=== PATIENT | female | born 1965 | race Caucasian/White ===

== ENCOUNTER 2019-01-04 10:03 | Inpatient (IN) ==
--- NOTE | 2019-01-04 10:54 | Cat Scan Report ---
History: Recent fall hitting head with altered mental status and spastic movements in the arms TECHNIQUE: The brain was imaged without contrast at 2.5 mm intervals. The radiation exposure was limited using dose reduction technology. FINDINGS: The bone windows show no skull fracture. There is no intracranial hemorrhage, cerebral edema, infarct or mass effect. There is mild generalized cerebral atrophy both above and below the tentorium. No abnormal extra-axial fluid collection has formed. The ventricles are normal in size. Comparison with the prior exam from 12/30/18 shows no significant change. IMPRESSION: Mild cerebral atrophy and no evidence of acute head injury Yoana Martinez was called with the results Interpreted and Authenticated by: Jeramie Polo 01/04/19
[2019-01-04 11:05] LABS: Basophils # (Auto) 0 K/mcL (0.0-0.3); Basophils % (Auto) 0.2 % (0.0-2.0); Eosinophils # (Auto) 0.2 K/mcL (0.0-0.7); Eosinophils % (Auto) 2.1 % (0.0-7.0); Granulocytes % (Auto) 79.8 % (38.0-78.0); Lymphocytes % (Auto) 11.3 % (15.5-49.0); Mean Cell Volume 90.4 fL (80.0-100.0); Mean Corpuscular HGB Conc 32.6 g/dL (31.0-36.0); Monocytes # (Auto) 0.6 K/mcL (0.1-0.9); Monocytes % (Auto) 6.6 % (1.0-12.0); Platelet Count 252 K/mcL (140-440); RBC 3.49 M/mcL (4.00-5.20); Red Cell Distribution Width 14.4 % (11.5-14.5)
[2019-01-04 11:10] LABS: Appearance,Urine CLOUDY; Bacteria,Urine FEW /hpf (0); Bilirubin,Urine NEG (NEG); Color,Urine YELLOW; Glucose,Urine (UA) >=500 mg/dL (NEG); Leukocyte Esterase,Urine 500 /uL (NEG); Mucus,Urine FEW /hpf (0); Protein,Urine NEG (NEG); Specific Gravity,Urine 1.014 (1.000-1.035); Urine Blood >=1.0 mg/dL (<0.03); Urine Budding Yeast MANY /hpf (0); Urine RBC > 182 /hpf (0-1); Urine Squamous Epithelial Cell 0 /hpf (0-4); Urine WBC > 182 /hpf (0-4); Urobilinogen,Urine NEG (NEG)
[2019-01-04 11:24] LABS: ALT/SGPT 34 U/l (0-40); Albumin 3.4 gm/dL (3.2-5.2); Albumin/Globulin Ratio 0.9 (1.0-2.3); Alkaline Phosphatase 65 U/L (39-117); Blood Urea Nitrogen 23 mg/dl (6-20)
--- NOTE | 2019-01-04 11:26 | Emergency Department Note ---
Altered Mental Status HPI - General Chief Complaint: Altered Mental Status Stated Complaint: Decreased LOC, Spastic movement in arms Time Seen by Provider: 01/04/19 10:14 Source: patient Mode of arrival: wheelchair Limitations: no limitations - History of Present Illness HPI Narrative: 49-year-old 3-year-old female presents with multiple complaints. She was seen on for a fall out of her wheelchair. She has a fractured arm and laceration to her head. Her head CT at that time was negative. States today she woke up and it is just hard to do things in general. Hard to even button her shirt and she cannot really take care of herself. She lives over [place] and they have been trying to get her some more care and originally she refused. Now states she is going to go to a group home even though she does not want to because she cannot take care of herself. She is currently being treated for a UTI as well, she is on Macrobid and the culture shows that is susceptible. No fever or chills. No nausea, vomiting, or diarrhea. She complains today of just generalized weakness and not being able to think right and not being herself. States she cannot describe it further than that. No change in vision. No dizziness. No pain anywhere. - Related Data Home Medications Medication Instructions Recorded Confirmed Atorvastatin [Lipitor] 40 mg PO HS 12/30/16 12/30/18 Cyanocobalamin (Vitamin B-12) 2,500 mcg PO DAILY 12/30/16 12/30/18 [Vitamin B12] Cyclobenzaprine [Flexeril] 10 mg PO TID 12/30/16 12/30/18 Ergocalciferol (Vitamin D2) 2,000 unit PO DAILY 12/30/16 12/30/18 [Vitamin D2] Hydrocodone/APAP 7.5/325Mg 7.5 mg PO BIDP PRN 12/30/16 12/30/18 Insulin Glargine,Hum.rec.anlog 20 unit SQ BID 12/30/16 12/30/18 [Basaglar Kwikpen U-100] Insulin Lispro [Humalog] See Protocol SQ TID 12/30/16 12/30/18 Loperamide HCl [Loperamide] 2 mg PO PRN PRN 12/30/16 12/30/18 Loratadine [Loradamed] 10 mg PO DAILY 12/30/16 12/30/18 Magnesium Hydroxide [Milk of 30 ml PO DAILYP PRN 12/30/16 12/30/18 Magnesia] Metoprolol Succinate [Toprol] 100 mg PO DAILY 12/30/16 12/30/18 Miconazole Nitrate [Lori 1 appful TP TIDP PRN 12/30/16 12/30/18 Antifungal] RX: Betamethasone Dipr Oint 0.05% 1 appful TP BIDP PRN 12/30/16 12/30/18 [Diprolene] RX: Gabapentin 900 mg PO QIDP 12/30/16 12/30/18 RX: metFORMIN HCL [Glucophage] 1,000 mg PO BID 12/30/16 12/30/18 Ranitidine HCl [Acid Bulk Intake Worker] 150 mg PO DAILY 12/30/16 12/30/18 Rivaroxaban [Xarelto] 20 mg PO DAILY 12/30/16 12/30/18 Spironolactone [Aldactone] 50 mg PO DAILY 12/30/16 12/30/18 Tylenol 650 mg PO Q6HP PRN 12/30/16 12/30/18 Venlafaxine HCl [Venlafaxine HCl 75 mg PO DAILY 12/30/16 12/30/18 ER] Venlafaxine HCl [Venlafaxine HCl 150 mg PO QHS 12/30/16 12/30/18 ER] clonazePAM [Clonazepam] 1 mg PO TIDP PRN 12/30/16 12/30/18 traZODone HCL [Trazodone HCl] 50 mg PO QHS 12/30/16 12/30/18 Dapagliflozin Propanediol [Farxiga] 10 mg PO DAILY 11/02/17 12/30/18 Docusate Sodium [Colace] 100 mg PO BID 11/02/17 12/30/18 Furosemide [Lasix] 20 mg PO BID 11/02/17 12/30/18 morphine SULFATE [Morphine Sulfate 60 mg PO TID 11/02/17 12/30/18 ER] Previous Rx's Medication Instructions Recorded RX: Fluconazole [Diflucan] 150 mg PO DAILY #7 tab 11/02/17 Loperamide [Imodium] 2 mg PO PRN PRN #30 cap 05/05/18 RX: Nitrofurantoin Macrocrystal 100 mg PO BID 7 Days #14 cap 12/31/18 [Nitrofurantoin] Allergies Allergy/AdvReac Type Severity Reaction Status Date / Time Penicillins Allergy Mild Rash Verified 01/04/19 10:07 Review of Systems All systems ED: reviewed and negative except as stated. 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 Laceration with edges well approximated and sutures intact. No redness or drainage. The laceration is to the right eyebrow) Eye: Present: PERRL, EOMI. Absent: conjunctival injection ENT: normal exam, normal oropharynx, mucous membranes moist, TM's normal bilaterally, normal external ear exam Neck: Present: normal inspection, trachea midline. Absent: tenderness, lymphadenopathy Chest: Present: symmetric chest wall rise Respiratory: Present: normal lung sounds bilaterally. Absent: respiratory distress, rales/crackles, accessory muscle use Cardiovascular: Present: regular rate, normal heart sounds Neurological: Present: alert, oriented X3 Psychiatric: Present: normal affect, normal mood Skin: Present: warm, dry, intact Course Course Narrative: At [address] did speak with Dr[address] Cruz, the hospitalist. We are also talking with licensed clinical social worker to make sure this patient meets that criteria for admission. Vital Signs Temperature 98.2 F 01/04/19 10:04 Pulse Rate 102 H 01/04/19 10:04 Respiratory Rate 16 01/04/19 10:04 Blood Pressure 113/61 01/04/19 10:04 Pulse Oximetry (%) 95 01/04/19 10:04 Temperature 98.2 F 01/04/19 10:04 Pulse Rate 89 01/04/19 11:21 Respiratory Rate 17 01/04/19 11:21 Blood Pressure 117/70 01/04/19 11:21 Pulse Oximetry (%) 90 01/04/19 11:21 Altered Mental Status - Lab Data Lab results reviewed: Yes I reviewed the patient's lab results. Result diagrams: 01/04/19 10:34 01/04/19 10:33 Lab Results 01/04/19 01/04/19 01/04/19 Range/Units 10:23 10:26 10:33 WBC (4.5-11.0) K/mcL RBC (4.00-5.20) M/mcL Hgb (12.0-15.0) g/dL Hct (36.0-48.0) % MCV (80.0-100.0) fL MCH (26.0-34.0) pg MCHC (31.0-36.0) g/dL RDW (11.5-14.5) % Plt Count (140-440) K/mcL MPV (7.4-10.4) fL Gran % (38.0-78.0) % Lymph % (Auto) (15.5-49.0) % [place] % (Auto) (1.0-12.0) % Eos % (Auto) (0.0-7.0) % Baso % (Auto) (0.0-2.0) % Gran # (1.8-8.0) K/mcL Lymph # (Auto) (1.5-4.8) K/mcL [place] # (Auto) (0.1-0.9) K/mcL Eos # (Auto) (0.0-0.7) K/mcL Baso # (Auto) (0.0-0.3) K/mcL POC PT 33.2 H (11.9-14.5) sec POC INR 2.9 H (0.9-1.2) VBG Lactic Acid (0.5-2.0) mmol/L Sodium 137 (133-145) mmol/L Potassium 4.5 (3.3-5.1) mmol/L Chloride 98 (96-108) mmol/L Carbon Dioxide 23 (22-30) mmol/L Anion Gap 16.0 (8-16) BUN 23 H (6-20) mg/dl Creatinine 1.0 (0.6-1.1) mg/dl GFR Calculation 64 Glucose 93 (70-105) mg/dL Calcium 8.8 (8.6-10.4) mg/dl Total Bilirubin 0.6 (0.0-1.0) mg/dL AST 49 H (0-37) U/l ALT 34 (0-40) U/l Alkaline Phosphatase 65 (39-117) U/L Troponin T (0-0.03) ng/ml Total Protein 7.0 (5.9-8.4) gm/dL Albumin 3.4 (3.2-5.2) gm/dL Globulin 3.6 (2.2-3.7) gm/dL Albumin/Globulin Ratio 0.9 L (1.0-2.3) Urine Color Yellow Urine Appearance Cloudy Urine pH 5.0 (5.0-9.0) Ur Specific [place] 1.014 (1.000-1.035) Urine Protein Neg (NEG) mg/dL Urine Glucose (UA) >=500 A (NEG) mg/dL Urine Ketones Neg (NEG) mg/dL Urine Occult Blood >=1.0 A (<0.03) mg/dL Urine Nitrate Neg (NEG) Urine Bilirubin Neg (NEG) mg/dL Urine Urobilinogen Neg (NEG) mg/dL Ur Leukocyte Esterase 500 A (NEG) /uL Urine RBC > 182 H (0-1) /hpf Urine WBC > 182 H (0-4) /hpf Ur Squamous Epith Cells 0 (0-4) /hpf Urine Bacteria Few A (0) /hpf Urine Mucus Few (0) /hpf Urine Yeast (Budding) Many A (0) /hpf Ur Culture Indicated? Yes 01/04/19 01/04/19 01/04/19 Range/Units 10:34 10:34 10:34 WBC 9.1 (4.5-11.0) K/mcL RBC 3.49 L (4.00-5.20) M/mcL Hgb 10.3 L (12.0-15.0) g/dL Hct 31.5 L (36.0-48.0) % MCV 90.4 (80.0-100.0) fL MCH 29.5 (26.0-34.0) pg MCHC 32.6 (31.0-36.0) g/dL RDW 14.4 (11.5-14.5) % Plt Count 252 (140-440) K/mcL MPV 7.2 L (7.4-10.4) fL Gran % 79.8 H (38.0-78.0) % Lymph % (Auto) 11.3 L (15.5-49.0) % [place] % (Auto) 6.6 (1.0-12.0) % Eos % (Auto) 2.1 (0.0-7.0) % Baso % (Auto) 0.2 (0.0-2.0) % Gran # 7.3 (1.8-8.0) K/mcL Lymph # (Auto) 1.0 L (1.5-4.8) K/mcL [place] # (Auto) 0.6 (0.1-0.9) K/mcL Eos # (Auto) 0.2 (0.0-0.7) K/mcL Baso # (Auto) 0 (0.0-0.3) K/mcL POC PT (11.9-14.5) sec POC INR (0.9-1.2) VBG Lactic Acid 3.5 H (0.5-2.0) mmol/L Sodium (133-145) mmol/L Potassium (3.3-5.1) mmol/L Chloride (96-108) mmol/L Carbon Dioxide (22-30) mmol/L Anion Gap (8-16) BUN (6-20) mg/dl Creatinine (0.6-1.1) mg/dl GFR Calculation Glucose (70-105) mg/dL Calcium (8.6-10.4) mg/dl Total Bilirubin (0.0-1.0) mg/dL AST (0-37) U/l ALT (0-40) U/l Alkaline Phosphatase (39-117) U/L Troponin T 0.01 (0-0.03) ng/ml Total Protein (5.9-8.4) gm/dL Albumin (3.2-5.2) gm/dL Globulin (2.2-3.7) gm/dL Albumin/Globulin Ratio (1.0-2.3) Urine Color Urine Appearance Urine pH (5.0-9.0) Ur Specific [place] (1.000-1.035) Urine Protein (NEG) mg/dL Urine Glucose (UA) (NEG) mg/dL Urine Ketones (NEG) mg/dL Urine Occult Blood (<0.03) mg/dL Urine Nitrate (NEG) Urine Bilirubin (NEG) mg/dL Urine Urobilinogen (NEG) mg/dL Ur Leukocyte Esterase (NEG) /uL Urine RBC (0-1) /hpf Urine WBC (0-4) /hpf Ur Squamous Epith Cells (0-4) /hpf Urine Bacteria (0) /hpf Urine Mucus (0) /hpf Urine Yeast (Budding) (0) /hpf Ur Culture Indicated? - Radiology Data Radiology results reviewed: Yes I reviewed the patient's radiology results. Disposition Pt seen by TRAFFIC LINE PAINTER/PA only: Yes Clinical Impression: UTI (urinary tract infection), Elevated lactic acid level, Generalized weakness Disposition: Xfer As Inpt ([facility]) Condition: Fair Referrals: Kassy Elder ARNP [Primary Care Provider] - Time of Disposition: 12:30
[2019-01-04] MEDS ORDERED: 0.9 % SODIUM CHLORIDE 1,000 ML IV ONE (11:32)
[2019-01-04] MEDS ORDERED: PIPERACILLIN SODIUM/TAZOBACTAM 3.375 GM in DEXTROSE 5% IN WATER 50 ML IV ONE (13:52)
--- NOTE | 2019-01-04 14:15 | Emergency Department Note ---
General Adult HPI - General Chief complaint: Altered Mental Status Stated complaint: Decreased LOC, Spastic movement in arms Time Seen by Provider: 01/04/19 10:14 Source: patient Mode of arrival: wheelchair Limitations: no limitations - Related Data Home Medications Medication Instructions Recorded Confirmed Atorvastatin [Lipitor] 40 mg PO HS 12/30/16 12/30/18 Betamethasone Dipr Oint 0.05% 1 appful TP BIDP PRN 12/30/16 12/30/18 [Diprolene] Cyanocobalamin (Vitamin B-12) 2,500 mcg PO DAILY 12/30/16 12/30/18 [Vitamin B12] Cyclobenzaprine [Flexeril] 10 mg PO TID 12/30/16 12/30/18 Ergocalciferol (Vitamin D2) 2,000 unit PO DAILY 12/30/16 12/30/18 [Vitamin D2] Gabapentin 900 mg PO QIDP 12/30/16 12/30/18 Hydrocodone/APAP 7.5/325Mg 7.5 mg PO BIDP PRN 12/30/16 12/30/18 Insulin Glargine,Hum.rec.anlog 20 unit SQ BID 12/30/16 12/30/18 [Basaglar Kwikpen U-100] Insulin Lispro [Humalog] See Protocol SQ TID 12/30/16 12/30/18 Loperamide HCl [Loperamide] 2 mg PO PRN PRN 12/30/16 12/30/18 Loratadine [Loradamed] 10 mg PO DAILY 12/30/16 12/30/18 Magnesium Hydroxide [Milk of 30 ml PO DAILYP PRN 12/30/16 12/30/18 Magnesia] Metoprolol Succinate [Toprol] 100 mg PO DAILY 12/30/16 12/30/18 Miconazole Nitrate [Lori 1 appful TP TIDP PRN 12/30/16 12/30/18 Antifungal] Ranitidine HCl [Acid Automatic Tire Tester] 150 mg PO DAILY 12/30/16 12/30/18 Rivaroxaban [Xarelto] 20 mg PO DAILY 12/30/16 12/30/18 Spironolactone [Aldactone] 50 mg PO DAILY 12/30/16 12/30/18 Tylenol 650 mg PO Q6HP PRN 12/30/16 12/30/18 Venlafaxine HCl [Venlafaxine HCl 75 mg PO DAILY 12/30/16 12/30/18 ER] Venlafaxine HCl [Venlafaxine HCl 150 mg PO QHS 12/30/16 12/30/18 ER] clonazePAM [Clonazepam] 1 mg PO TIDP PRN 12/30/16 12/30/18 metFORMIN HCL [Glucophage] 1,000 mg PO BID 12/30/16 12/30/18 traZODone HCL [Trazodone HCl] 50 mg PO QHS 12/30/16 12/30/18 Dapagliflozin Propanediol [Farxiga] 10 mg PO DAILY 11/02/17 12/30/18 Docusate Sodium [Colace] 100 mg PO BID 11/02/17 12/30/18 Furosemide [Lasix] 20 mg PO BID 11/02/17 12/30/18 morphine SULFATE [Morphine Sulfate 60 mg PO TID 11/02/17 12/30/18 ER] Previous Rx's Medication Instructions Recorded Fluconazole [Diflucan] 150 mg PO DAILY #7 tab 11/02/17 Loperamide [Imodium] 2 mg PO PRN PRN #30 cap 05/05/18 Nitrofurantoin Macrocrystal 100 mg PO BID 7 Days #14 cap 12/31/18 [Nitrofurantoin] Allergies Allergy/AdvReac Type Severity Reaction Status Date / Time Penicillins Allergy Mild Rash Verified 01/04/19 10:07 Past Medical History - Past Medical History Medical history: Reports: CHF (Cardiomyopathy), DM, fibromyalgia, GERD, hy perlipidemia, hypertension, obesity, other (Chronic pain, osteoarthritis, [place] (ten years ago)) Psychiatric history: Reports: anxiety, depression 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 It also turns out that she has a very large hematoma to the left lower leg with surrounding cellulitis. She has an elevated lactate level. She has a resistant urinary tract infection, currently on antibiotics but it appears to be a resistant infection. Patient not able to take care of self as she has multiple medical problems, peripheral neuropathy, on blood thinners recent arm fracture. Discussed possible admission with Dr. Cruz and he seems to indicate that this should not be a problem given her multiple morbidities of. Vital Signs Temperature 98.2 F 01/04/19 10:04 Pulse Rate 102 H 01/04/19 10:04 Respiratory Rate 16 01/04/19 10:04 Blood Pressure 113/61 01/04/19 10:04 Pulse Oximetry (%) 95 01/04/19 10:04 Temperature 98.2 F 01/04/19 10:04 Pulse Rate 82 01/04/19 13:18 Respiratory Rate 20 01/04/19 13:18 Blood Pressure 116/75 01/04/19 13:18 Pulse Oximetry (%) 96 01/04/19 13:18 Medical Decision Making - Lab Data Result diagrams: 01/04/19 10:34 01/04/19 10:33 Lab Results 01/04/19 01/04/19 01/04/19 Range/Units 10:23 10:26 10:33 WBC (4.5-11.0) K/mcL RBC (4.00-5.20) M/mcL Hgb (12.0-15.0) g/dL Hct (36.0-48.0) % MCV (80.0-100.0) fL MCH (26.0-34.0) pg MCHC (31.0-36.0) g/dL RDW (11.5-14.5) % Plt Count (140-440) K/mcL MPV (7.4-10.4) fL Gran % (38.0-78.0) % Lymph % (Auto) (15.5-49.0) % [place] % (Auto) (1.0-12.0) % Eos % (Auto) (0.0-7.0) % Baso % (Auto) (0.0-2.0) % Gran # (1.8-8.0) K/mcL Lymph # (Auto) (1.5-4.8) K/mcL [place] # (Auto) (0.1-0.9) K/mcL Eos # (Auto) (0.0-0.7) K/mcL Baso # (Auto) (0.0-0.3) K/mcL POC PT 33.2 H (11.9-14.5) sec POC INR 2.9 H (0.9-1.2) VBG Lactic Acid (0.5-2.0) mmol/L Sodium 137 (133-145) mmol/L Potassium 4.5 (3.3-5.1) mmol/L Chloride 98 (96-108) mmol/L Carbon Dioxide 23 (22-30) mmol/L Anion Gap 16.0 (8-16) BUN 23 H (6-20) mg/dl Creatinine 1.0 (0.6-1.1) mg/dl GFR Calculation 64 Glucose 93 (70-105) mg/dL Calcium 8.8 (8.6-10.4) mg/dl Total Bilirubin 0.6 (0.0-1.0) mg/dL AST 49 H (0-37) U/l ALT 34 (0-40) U/l Alkaline Phosphatase 65 (39-117) U/L Troponin T (0-0.03) ng/ml Total Protein 7.0 (5.9-8.4) gm/dL Albumin 3.4 (3.2-5.2) gm/dL Globulin 3.6 (2.2-3.7) gm/dL Albumin/Globulin Ratio 0.9 L (1.0-2.3) Urine Color Yellow Urine Appearance Cloudy Urine pH 5.0 (5.0-9.0) Ur Specific [place] 1.014 (1.000-1.035) Urine Protein Neg (NEG) mg/dL Urine Glucose (UA) >=500 A (NEG) mg/dL Urine Ketones Neg (NEG) mg/dL Urine Occult Blood >=1.0 A (<0.03) mg/dL Urine Nitrate Neg (NEG) Urine Bilirubin Neg (NEG) mg/dL Urine Urobilinogen Neg (NEG) mg/dL Ur Leukocyte Esterase 500 A (NEG) /uL Urine RBC > 182 H (0-1) /hpf Urine WBC > 182 H (0-4) /hpf Ur Squamous Epith Cells 0 (0-4) /hpf Urine Bacteria Few A (0) /hpf Urine Mucus Few (0) /hpf Urine Yeast (Budding) Many A (0) /hpf Ur Culture Indicated? Yes 01/04/19 01/04/19 01/04/19 Range/Units 10:34 10:34 10:34 WBC 9.1 (4.5-11.0) K/mcL RBC 3.49 L (4.00-5.20) M/mcL Hgb 10.3 L (12.0-15.0) g/dL Hct 31.5 L (36.0-48.0) % MCV 90.4 (80.0-100.0) fL MCH 29.5 (26.0-34.0) pg MCHC 32.6 (31.0-36.0) g/dL RDW 14.4 (11.5-14.5) % Plt Count 252 (140-440) K/mcL MPV 7.2 L (7.4-10.4) fL Gran % 79.8 H (38.0-78.0) % Lymph % (Auto) 11.3 L (15.5-49.0) % [place] % (Auto) 6.6 (1.0-12.0) % Eos % (Auto) 2.1 (0.0-7.0) % Baso % (Auto) 0.2 (0.0-2.0) % Gran # 7.3 (1.8-8.0) K/mcL Lymph # (Auto) 1.0 L (1.5-4.8) K/mcL [place] # (Auto) 0.6 (0.1-0.9) K/mcL Eos # (Auto) 0.2 (0.0-0.7) K/mcL Baso # (Auto) 0 (0.0-0.3) K/mcL POC PT (11.9-14.5) sec POC INR (0.9-1.2) VBG Lactic Acid 3.5 H (0.5-2.0) mmol/L Sodium (133-145) mmol/L Potassium (3.3-5.1) mmol/L Chloride (96-108) mmol/L Carbon Dioxide (22-30) mmol/L Anion Gap (8-16) BUN (6-20) mg/dl Creatinine (0.6-1.1) mg/dl GFR Calculation Glucose (70-105) mg/dL Calcium (8.6-10.4) mg/dl Total Bilirubin (0.0-1.0) mg/dL AST (0-37) U/l ALT (0-40) U/l Alkaline Phosphatase (39-117) U/L Troponin T 0.01 (0-0.03) ng/ml Total Protein (5.9-8.4) gm/dL Albumin (3.2-5.2) gm/dL Globulin (2.2-3.7) gm/dL Albumin/Globulin Ratio (1.0-2.3) Urine Color Urine Appearance Urine pH (5.0-9.0) Ur Specific [place] (1.000-1.035) Urine Protein (NEG) mg/dL Urine Glucose (UA) (NEG) mg/dL Urine Ketones (NEG) mg/dL Urine Occult Blood (<0.03) mg/dL Urine Nitrate (NEG) Urine Bilirubin (NEG) mg/dL Urine Urobilinogen (NEG) mg/dL Ur Leukocyte Esterase (NEG) /uL Urine RBC (0-1) /hpf Urine WBC (0-4) /hpf Ur Squamous Epith Cells (0-4) /hpf Urine Bacteria (0) /hpf Urine Mucus (0) /hpf Urine Yeast (Budding) (0) /hpf Ur Culture Indicated? Disposition Pt seen by AUTOMOBILE MECHANIC RADIATOR/PA only: No Clinical Impression: UTI (urinary tract infection), Elevated lactic acid level, Generalized weakness, Delirium due to general medical condition, Left elbow fracture Disposition: Still a Patient Condition: Fair Referrals: Kassy Elder ARNP [Primary Care Provider] -
--- NOTE | 2019-01-04 14:20 | Internal Med History&Physical ---
Medical - H&P: HPI Patient information: Note initiated : 01/04/19 at 2:13 pm Service Date, if different from initiated Date: [] Patient: Jessica Gaytan a 53 y/o F admitted on for Decreased LOC, Spastic movement in arms. Chief Complaint: [] Chief complaint: weakness, fall, altered mental status History of present illness: Ms. Gaytan is a 53 year old F with a known history of hypertension/obesity and coronary artery disease who presents to the ER with multiple complaints including weakness lethargic malaise, gradual deterioration in functional status after sustaining a fall a few days ago off her wheelchair that resulted in left supracondylar fracture humerus along with injury to the left lower extremity resulting in hematoma. Patient was placed in a cast and sling and has been at [facility] unable to care for self. She has experienced a gradual decline in health and has been battling with recurrent UTIs and has been recently on antibiotics. She however denies expressing fever, diarrhea, dysuria, bloody stool. She further denies headache photophobia but has gradually gotten increasingly confused. Initial workup in the ER was consistent with recurrent UTI with pyuria/elevated lactate and left lower extremity hematoma/cellulitis. Patient was started on antibiotics and hospitalist service was consulted During the time of evaluation patient is fatigued and lethargic and was able to answer some questions. She denies lightheadedness, dizziness, seizure episode. She attributes the fall with her motorized chair toppling over the Rug Review of systems 10 point review of system was performed and is negative so was discussed above Medical - H&P: PMH Medical history: DM type II History of cardiomyopathy Fibromyalgia Hyperlipidemia GERD Hypertension Obesity Chronic pain Degenerative joint disease History of CAD Anxiety depression Surgical history: Gastric bypass Left toe amputation Tonsillectomy Smoking status: Never smoker Have you smoked in the last 12 months: No Medical - H&P: Meds Home Medications Medication Instructions Recorded Confirmed Type Atorvastatin [Lipitor] 10 mg PO HS 12/30/16 01/04/19 History Cyclobenzaprine [Flexeril] 10 mg PO TID 12/30/16 01/04/19 History Insulin Glargine,Hum.rec.anlog 20 unit SQ BID 12/30/16 01/04/19 History [Tami Nava U-100] Insulin Lispro [Humalog] See Protocol SQ TIDAC 12/30/16 01/04/19 History Loratadine [Loradamed] 10 mg PO DAILY 12/30/16 01/04/19 History Magnesium Hydroxide [Milk of 30 ml PO DAILYP PRN 12/30/16 01/04/19 History Magnesia] Metoprolol Succinate [Toprol] 100 mg PO DAILY 12/30/16 01/04/19 History Ranitidine HCl [Acid Tailer Off] 150 mg PO BIDAC 12/30/16 01/04/19 History Rivaroxaban [Xarelto] 20 mg PO DAILY 12/30/16 01/04/19 History Spironolactone [Aldactone] 50 mg PO BID 12/30/16 01/04/19 History Tylenol 650 mg PO Q6HP PRN 12/30/16 01/04/19 History Venlafaxine HCl [Venlafaxine HCl 75 mg PO DAILY 12/30/16 01/04/19 History ER] Venlafaxine HCl [Venlafaxine HCl 150 mg PO DAILY 12/30/16 01/04/19 History ER] metFORMIN HCL [Glucophage] 1,000 mg PO BIDAC 12/30/16 01/04/19 History Dapagliflozin Propanediol [Farxiga] 10 mg PO DAILY 11/02/17 01/04/19 History Furosemide [Lasix] 20 mg PO BID 11/02/17 01/04/19 History Nitrofurantoin Macrocrystal 100 mg PO BID 7 Days #14 cap 12/31/18 01/04/19 Rx [Nitrofurantoin] Aripiprazole [Abilify] 30 mg PO HS 01/04/19 01/04/19 History Cholecalciferol (Vitamin D3) [D3 2,000 unit PO DAILY 01/04/19 01/04/19 History Dots] Cyanocobalamin (Vitamin B-12) 2,500 mcg PO DAILY 01/04/19 01/04/19 History [Vitamin B12] Docusate Sodium [Colace] 100 mg PO BID 01/04/19 01/04/19 History Gabapentin [Neurontin] 900 mg PO QID 01/04/19 01/04/19 History HYDROcodone/APAP 10/325MG 1 tab PO QIDP PRN 01/04/19 01/04/19 History LORazepam 1 mg PO Q4HP PRN 01/04/19 01/04/19 History Loperamide [Imodium] 2 mg PO PRN PRN MDD 8 01/04/19 01/04/19 History Polyethylene Glycol 3350 [Miralax] 1 packet PO BIDP PRN 01/04/19 01/04/19 History buPROPion HCL [Forfivo Xl] 450 mg PO DAILY 01/04/19 01/04/19 History morphine [Ms Contin] 15 mg PO TID 01/04/19 01/04/19 History traZODone HCL [Trazodone HCl] 300 mg PO HS 01/04/19 01/04/19 History Allergies Allergy/AdvReac Type Severity Reaction Status Date / Time Penicillins Allergy Mild Rash Verified 01/04/19 10:07 Medical - H&P: Exam - Constitutional Vitals: Temp Pulse Resp BP Pulse Ox 98.2 F 82 20 116/75 96 01/04/19 10:04 01/04/19 13:18 01/04/19 13:18 01/04/19 13:18 01/04/19 13:18 General appearance: no acute distress Exam: Morbidly obese fatigued and lethargic Head normocephalic Oral cavity dry No eardischarge Neck no lymphadenopathy S1 and S2 regular rhythm Diminished breath sounds bases Abdomen soft nontender Lower extremity no cyanosis clubbing, hematoma left lower extremity along with surrounding cellulitis measuring 5 x 5 Left upper extremity covered in a cast/sling Skin no suspicious lesion Psych alert cooperative Neuro nonfocal Medical - H&P: Reslt - Labs CBC & Chem 7: 01/04/19 10:34 01/04/19 10:33 Labs: Short CBC 01/04/19 Range/Units 10:34 WBC 9.1 (4.5-11.0) K/mcL Hgb 10.3 L (12.0-15.0) g/dL Hct 31.5 L (36.0-48.0) % Plt Count 252 (140-440) K/mcL BMP 01/04/19 10:33 Sodium 137 Potassium 4.5 Chloride 98 Carbon Dioxide 23 BUN 23 H Creatinine 1.0 Glucose 93 Calcium 8.8 Cardiac Enzymes 01/04/19 Range/Units 10:34 Troponin T 0.01 (0-0.03) ng/ml Liver Function 01/04/19 Range/Units 10:33 Total Bilirubin 0.6 (0.0-1.0) mg/dL AST 49 H (0-37) U/l ALT 34 (0-40) U/l Alkaline Phosphatase 65 (39-117) U/L Albumin 3.4 (3.2-5.2) gm/dL Urine 01/04/19 Range/Units 10:26 Urine Color Yellow Urine Appearance Cloudy Urine pH 5.0 (5.0-9.0) Ur Specific [place] 1.014 (1.000-1.035) Urine Protein Neg (NEG) mg/dL Urine Glucose (UA) >=500 A (NEG) mg/dL Medical - H&P: A/P (1) Complicated UTI (urinary tract infection) Current visit: Yes Status: Acute * Complicated UTI-failed outpatient treatment. Continue broad antibiotic coverage and de-escalate based on culture sensitivities. * Recurrent falls rule out cardiac syncope/arrhythmia. Echocardiogram/telemetry monitoring/PT OT/gait and safety eval. Check orthostatics * Left lower extremity infected hematoma/cellulitis-continue antibiotic coverage/wound care consult. * Recent left supracondylar humerus fracture-currently on sling continue pain management. Orthopedic consult * Significant self-care deficits/generalized deconditioning and weakness. Continue aggressive PT OT/nutrition support. Case management to coordinate discharge planning to [facility]. * DM type II continue basal prandial insulin/Farxiga * History of coronary artery disease continue metoprolol/statin/spironolactone * Anticoagulation on rivaroxaban * Neuropathy continue gabapentin/cyclobenzaprine * Anxiety disorder continue venlafaxine * Morbid obesity * Full code Plan * Inpatient admitted in light of severe deconditioning, recurrent falls, self- care deficits * Pain management * Antibiotic coverage for failed outpatient UTI treatment/cellulitis * Wound care consult for left lower extremity infected hematoma * Pre-existing medical condition management as above * Aggressive PT OT/nutritional support
[2019-01-04] MEDS ORDERED: ACETAMINOPHEN 1,000 MG/100 ML BOTTLE IV PRN (15:35)
[2019-01-04] MEDS ORDERED: DEXTROSE 50% 50 ML VIAL IV PRN (15:35)
[2019-01-04] MEDS ORDERED: ONDANSETRON 4 MG/2 ML VIAL IV PRN (15:35)
[2019-01-04] MEDS ORDERED: MAGNESIUM SULFATE 2 GM/50 ML BAG IV PRN (15:35)
[2019-01-04] MEDS ORDERED: DEXTROSE 31 GM ORAL.SUSP PO PRN (15:35)
[2019-01-04] MEDS ORDERED: ACETAMINOPHEN 325 MG TABLET PO PRN (15:35)
[2019-01-04] MEDS ORDERED: MAGNESIUM HYDROXIDE 30 ML ORAL.SUSP PO PRN ×2 (15:35→17:40)
[2019-01-04] MEDS ORDERED: POTASSIUM CHLORIDE 20 MEQ PACKET PO PRN (15:35)
[2019-01-04] MEDS: INSULIN LISPRO 1 UNIT/0.01 ML UNIT SQ SCH ×2 (16:59→21:24)
[2019-01-04] MEDS ORDERED: POLYETHYLENE GLYCOL 3350 17 GM PACKET PO PRN (17:40)
[2019-01-04] MEDS ORDERED: FLEETS ADULT ENEMA PR PRN (17:44)
[2019-01-04] MEDS: PIPERACILLIN SODIUM/TAZOBACTAM 3.375 GM in DEXTROSE 5% IN WATER 50 ML IV SCH (18:11)
[2019-01-04] MEDS: metFORMIN 500 MG TABLET PO SCH (18:13)
[2019-01-04] MEDS ORDERED: DOCUSATE SODIUM 100 MG CAPSULE PO SCH (21:00)
--- NOTE | 2019-01-04 21:03 | General Surgery Consult Note ---
History of Present Illness Patient information: Note initiated : 01/04/19 at 8:51 pm Service Date, if different from initiated Date: [] Patient: Jessica Gaytan a 53 y/o F admitted on 01/04/19 for Decreased LOC, Spastic movement in arms. Chief Complaint: [] Consult date: 01/04/19 Requesting physician: Ramiro Bhardwaj (Wound / Trauma Left leg) History of present illness: 53/F Resident of [facility]. Morbid obese and sedentary. Uses motorized scooter for going around. WOUND CARE CONSULT for traumatic wound LEFT leg with hematoma. I know this patient from her treatment at wound care clinic. She fell off her scooter and sustained Left humeral fracture and soft tissue trauma to Right face and eye brow over 4 days ago. Sutured in ER, X-Rayed, CT scanned for head and discharged. Subsequently fell again, sustained soft tissue injury to Left leg and knee area. Had AMS, hence underwent repeat CT scan of head. There is no evidence of intracranial bone or parenchymal injury, bleeding OR structural shift. She has cerebral atrophy. Patient has multiple other comorbid medical and surgical conditions. Appropriately managed. Medications and Allergies Home Medications Medication Instructions Recorded Confirmed Type Atorvastatin [Lipitor] 10 mg PO HS 12/30/16 01/04/19 History Cyclobenzaprine [Flexeril] 10 mg PO TID 12/30/16 01/04/19 History Insulin Glargine,Hum.rec.anlog 20 unit SQ BID 12/30/16 01/04/19 History [Nbaagljunior Nava U-100] Insulin Lispro [Humalog] See Protocol SQ TIDAC 12/30/16 01/04/19 History Loratadine [Loradamed] 10 mg PO DAILY 12/30/16 01/04/19 History Magnesium Hydroxide [Milk of 30 ml PO DAILYP PRN 12/30/16 01/04/19 History Magnesia] Metoprolol Succinate [Toprol] 100 mg PO DAILY 12/30/16 01/04/19 History Ranitidine HCl [Acid Fireworks Assembly Supervisor] 150 mg PO BIDAC 12/30/16 01/04/19 History Rivaroxaban [Xarelto] 20 mg PO DAILY 12/30/16 01/04/19 History Spironolactone [Aldactone] 50 mg PO BID 12/30/16 01/04/19 History Tylenol 650 mg PO Q6HP PRN 12/30/16 01/04/19 History Venlafaxine HCl [Venlafaxine HCl 75 mg PO DAILY 12/30/16 01/04/19 History ER] Venlafaxine HCl [Venlafaxine HCl 150 mg PO DAILY 12/30/16 01/04/19 History ER] metFORMIN HCL [Glucophage] 1,000 mg PO BIDAC 12/30/16 01/04/19 History Dapagliflozin Propanediol [Farxiga] 10 mg PO DAILY 11/02/17 01/04/19 History Furosemide [Lasix] 20 mg PO BID 11/02/17 01/04/19 History Nitrofurantoin Macrocrystal 100 mg PO BID 7 Days #14 cap 12/31/18 01/04/19 Rx [Nitrofurantoin] Aripiprazole [Abilify] 30 mg PO HS 01/04/19 01/04/19 History Cholecalciferol (Vitamin D3) [D3 2,000 unit PO DAILY 01/04/19 01/04/19 History Dots] Cyanocobalamin (Vitamin B-12) 2,500 mcg PO DAILY 01/04/19 01/04/19 History [Vitamin B12] Docusate Sodium [Colace] 100 mg PO BID 01/04/19 01/04/19 History Gabapentin [Neurontin] 900 mg PO QID 01/04/19 01/04/19 History HYDROcodone/APAP 10/325MG 1 tab PO QIDP PRN 01/04/19 01/04/19 History LORazepam 1 mg PO Q4HP PRN 01/04/19 01/04/19 History Loperamide [Imodium] 2 mg PO PRN PRN MDD 8 01/04/19 01/04/19 History Polyethylene Glycol 3350 [Miralax] 1 packet PO BIDP PRN 01/04/19 01/04/19 History buPROPion HCL [Forfivo Xl] 450 mg PO DAILY 01/04/19 01/04/19 History morphine [Ms Contin] 15 mg PO TID 01/04/19 01/04/19 History traZODone HCL [Trazodone HCl] 300 mg PO HS 01/04/19 01/04/19 History Allergies Allergy/AdvReac Type Severity Reaction Status Date / Time Penicillins Allergy Mild Rash Verified 01/04/19 10:07 Exam Temp Pulse Resp BP Pulse Ox 97.7 F 85 18 120/66 95 01/04/19 15:28 01/04/19 15:28 01/04/19 15:28 01/04/19 15:28 01/04/19 15:28 - General physical appearance well developed, well nourished, no distress, obese (Morbid obesity and non ambulatory. Usus motorized scooter. ) - Eyes PERRL, normal ocular movement, other (Resolving ecchymoses around right orbit. Sutured wound / laceration RIght eyebrow.) - ENT normal pinna, normal nares, normal mucosa, no congestion - Head Head exam IM: Present: atraumatic, normal inspection, normocephalic - Neck no masses, trachea midline, no venous distension - Cardiovascular Cardiovascular exam IM: Present: normal rate and rhythm - Respiratory normal respiratory effort, other (Decreased breath sounds at lung bases. ) - Abdomen Abdomen: Present: soft, non tender, bowel sounds (Redundant oerhanging panniculus) - Genitourinary Present: other (Chronic open wound Right labia. Ruptured cyst. ) - Integumentary Present: other (Brusing and hematoma of Left leg, mid third ann and calf area. Periorbital ecchymoses Right face. ) - Neurologic Present: normal coordination, normal sensation, other (No focal neurological deficits.) - Musculoskeletal Present: other (Bed confined. LEFT humerus fracture. Elbow at right angle. NO NV deficit. Arm in sling. LEFT leg subcutneous bruise / hematoma with intact skin . Scattered bruising LEFT calf. ) - Psychiatric Present: oriented to time, oriented to person, oriented to place, speech is normal, memory intact, other (SHe says that she cannot live by herself and needs to be in a SNF or Rehab facility) Results - Labs 01/05/19 04:18 01/05/19 04:18 Abnormal lab results 01/04/19 01/04/19 01/04/19 Range/Units 10:23 10:26 10:33 RBC (4.00-5.20) M/mcL Hgb (12.0-15.0) g/dL Hct (36.0-48.0) % MPV (7.4-10.4) fL Gran % (38.0-78.0) % Lymph % (Auto) (15.5-49.0) % Lymph # (Auto) (1.5-4.8) K/mcL POC PT 33.2 H (11.9-14.5) sec POC INR 2.9 H (0.9-1.2) VBG Lactic Acid (0.5-2.0) mmol/L BUN 23 H (6-20) mg/dl AST 49 H (0-37) U/l Albumin/Globulin Ratio 0.9 L (1.0-2.3) Urine Glucose (UA) >=500 A (NEG) mg/dL Urine Occult Blood >=1.0 A (<0.03) mg/dL Ur Leukocyte Esterase 500 A (NEG) /uL Urine RBC > 182 H (0-1) /hpf Urine WBC > 182 H (0-4) /hpf Urine Bacteria Few A (0) /hpf Urine Yeast (Budding) Many A (0) /hpf 01/04/19 01/04/19 Range/Units 10:34 10:34 RBC 3.49 L (4.00-5.20) M/mcL Hgb 10.3 L (12.0-15.0) g/dL Hct 31.5 L (36.0-48.0) % MPV 7.2 L (7.4-10.4) fL Gran % 79.8 H (38.0-78.0) % Lymph % (Auto) 11.3 L (15.5-49.0) % Lymph # (Auto) 1.0 L (1.5-4.8) K/mcL POC PT (11.9-14.5) sec POC INR (0.9-1.2) VBG Lactic Acid 3.5 H (0.5-2.0) mmol/L BUN (6-20) mg/dl AST (0-37) U/l Albumin/Globulin Ratio (1.0-2.3) Urine Glucose (UA) (NEG) mg/dL Urine Occult Blood (<0.03) mg/dL Ur Leukocyte Esterase (NEG) /uL Urine RBC (0-1) /hpf Urine WBC (0-4) /hpf Urine Bacteria (0) /hpf Urine Yeast (Budding) (0) /hpf Diabetes panel 01/04/19 Range/Units 10:33 Sodium 137 (133-145) mmol/L Potassium 4.5 (3.3-5.1) mmol/L Chloride 98 (96-108) mmol/L Carbon Dioxide 23 (22-30) mmol/L BUN 23 H (6-20) mg/dl Creatinine 1.0 (0.6-1.1) mg/dl Glucose 93 (70-105) mg/dL Calcium 8.8 (8.6-10.4) mg/dl AST 49 H (0-37) U/l ALT 34 (0-40) U/l Alkaline Phosphatase 65 (39-117) U/L Total Protein 7.0 (5.9-8.4) gm/dL Albumin 3.4 (3.2-5.2) gm/dL Calcium panel 01/04/19 Range/Units 10:33 Calcium 8.8 (8.6-10.4) mg/dl Albumin 3.4 (3.2-5.2) gm/dL Pituitary panel 01/04/19 Range/Units 10:33 Sodium 137 (133-145) mmol/L Potassium 4.5 (3.3-5.1) mmol/L Chloride 98 (96-108) mmol/L Carbon Dioxide 23 (22-30) mmol/L BUN 23 H (6-20) mg/dl Creatinine 1.0 (0.6-1.1) mg/dl Glucose 93 (70-105) mg/dL Calcium 8.8 (8.6-10.4) mg/dl Adrenal panel 01/04/19 Range/Units 10:33 Sodium 137 (133-145) mmol/L Potassium 4.5 (3.3-5.1) mmol/L Chloride 98 (96-108) mmol/L Carbon Dioxide 23 (22-30) mmol/L BUN 23 H (6-20) mg/dl Creatinine 1.0 (0.6-1.1) mg/dl Glucose 93 (70-105) mg/dL Calcium 8.8 (8.6-10.4) mg/dl Total Bilirubin 0.6 (0.0-1.0) mg/dL AST 49 H (0-37) U/l ALT 34 (0-40) U/l Alkaline Phosphatase 65 (39-117) U/L Total Protein 7.0 (5.9-8.4) gm/dL Albumin 3.4 (3.2-5.2) gm/dL All other labs normal. Assessment and Plan (1) Traumatic hematoma of left lower leg Assessment :Traumatic hematoma LEFT leg. ( Soft tissue injury calf ) Plan: Marked out outer edge of erythema. Await MRI of Left leg. Status: Acute Priority: High Qualifiers: Encounter type: initial encounter Qualified Code(s): S80.12XA - Contusion of left lower leg, initial encounter (2) Fall Status: Acute Priority: Medium Qualifiers: Encounter type: initial encounter Qualified Code(s): W19.XXXA - Unspecified fall, initial encounter (3) Laceration of head Status: Acute Priority: Medium Qualifiers: Encounter type: initial encounter Location of open wound of head: periocular area Foreign body presence: without foreign body Laterality: right Qualified Code(s): S01.111A - Laceration without foreign body of right eyelid and periocular area, initial encounter (4) Left elbow fracture Status: Acute Priority: High Qualifiers: Encounter type: initial encounter Fracture type: closed Qualified Code(s): S42.402A - Unspecified fracture of lower end of left humerus, initial encounter for closed fracture (5) Urinary tract bacterial infections Status: Chronic Priority: Low
[2019-01-04] MEDS: ATORVASTATIN 20 MG TABLET PO SCH (21:43)
[2019-01-04] MEDS: ARIPIPRAZOLE 20 MG TABLET PO SCH (21:43)
[2019-01-04] MEDS: GABAPENTIN 300 MG CAPSULE PO SCH (21:44)
[2019-01-04] MEDS: NITROFURANTOIN SR 100 MG CAPSULE PO SCH (21:45)
[2019-01-04] MEDS: SPIRONOLACTONE 25 MG TABLET PO SCH (21:46)
[2019-01-04] MEDS: SENNOSIDES/DOCUSATE SODIUM 1 TAB TABLET PO SCH (21:47)
[2019-01-04] MEDS: INSULIN GLARGINE, HUMAN 1 UNIT/0.01 ML SQ SCH (21:48)
[2019-01-04] MEDS: DOCUSATE SODIUM 100 MG CAPSULE PO SCH (21:48)
[2019-01-04] MEDS: FUROSEMIDE 20 MG TABLET PO SCH (21:48)
[2019-01-04] MEDS: morphine 15 MG TAB.SR.12H PO SCH (21:48)
[2019-01-05] MEDS: 0.9 % SODIUM CHLORIDE 10 ML SYRINGE IV SCH ×4 (01:03→22:48)
[2019-01-05] MEDS: PIPERACILLIN SODIUM/TAZOBACTAM 3.375 GM in DEXTROSE 5% IN WATER 50 ML IV SCH ×5 (01:04→23:53)
[2019-01-05] MEDS: LORazepam 1 MG TABLET PO PRN (02:55)
[2019-01-05] MEDS: HYDROcodone/APAP 10/325MG TABLET PO PRN ×2 (02:55→16:44)
[2019-01-05 05:45] LABS: Mean Cell Volume 90.9 fL (80.0-100.0); Mean Corpuscular HGB Conc 31.9 g/dL (31.0-36.0); Platelet Count 229 K/mcL (140-440); RBC 3.06 M/mcL (4.00-5.20); Red Cell Distribution Width 13.5 % (11.5-14.5)
[2019-01-05 06:08] LABS: ALT/SGPT 28 U/l (0-40); Alkaline Phosphatase 53 U/L (39-117); Bilirubin,Direct < 0.2 mg/dL (0.0-0.3); Blood Urea Nitrogen 16 mg/dl (6-20); Gamma Glutamyl Transpeptidase 18 U/L (5-36); Uric Acid 6.5 mg/dL (2.5-8.0)
[2019-01-05 06:44] LABS: Eosinophils % (Manual) 1 % (0-7); Lymphocytes % 18 % (15-49); Monocytes % (Manual) 7 % (1-12); Platelet Estimate NORMAL (NORMAL); RBC Morphology NORMAL (NORMAL); Segmented Neutrophils % 74 % (38-78)
[2019-01-05] MEDS: metFORMIN 500 MG TABLET PO SCH ×2 (07:53→16:42)
[2019-01-05] MEDS: INSULIN LISPRO 1 UNIT/0.01 ML UNIT SQ SCH ×4 (07:53→22:47)
[2019-01-05] MEDS: sitaGLIPtin 100 MG TABLET PO SCH (09:00)
[2019-01-05] MEDS: INSULIN GLARGINE, HUMAN 1 UNIT/0.01 ML SQ SCH ×2 (09:47→22:42)
[2019-01-05] MEDS: NITROFURANTOIN SR 100 MG CAPSULE PO SCH ×2 (09:49→22:45)
[2019-01-05] MEDS: morphine 15 MG TAB.SR.12H PO SCH ×3 (09:49→22:45)
[2019-01-05] MEDS: SPIRONOLACTONE 25 MG TABLET PO SCH ×2 (09:50→22:43)
[2019-01-05] MEDS: GABAPENTIN 300 MG CAPSULE PO SCH ×4 (09:50→22:46)
[2019-01-05] MEDS: buPROPion 150 MG TAB.XL.24H PO SCH (09:50)
[2019-01-05] MEDS: METOPROLOL SUCCINATE 50 MG TAB.XL.24H PO SCH (09:51)
[2019-01-05] MEDS: CYANOCOBALAMIN (VITAMIN B-12) 500 MCG TABLET PO SCH (09:51)
[2019-01-05] MEDS: RIVAROXABAN 20 MG TABLET PO SCH (09:52)
[2019-01-05] MEDS: LORATADINE 10 MG TABLET PO SCH (09:52)
[2019-01-05] MEDS: DOCUSATE SODIUM 100 MG CAPSULE PO SCH ×2 (09:52→22:46)
[2019-01-05] MEDS: VENLAFAXINE 150 MG CAP.XL.24H PO SCH (09:52)
[2019-01-05] MEDS: FUROSEMIDE 20 MG TABLET PO SCH ×2 (09:52→22:46)
[2019-01-05] MEDS: Dapagliflozin Propanediol [Farxiga] 10 mg Tab PO SCH (11:06)
--- NOTE | 2019-01-05 13:21 | Internal Med Progress Note ---
Medical - PN: Subj Patient information: Note initiated : 01/05/19 at 1:19 pm Service Date, if different from initiated Date: [] Patient: Jessica Gaytan a 53 y/o F admitted on 01/04/19 for Decreased LOC, Spastic movement in arms. Chief Complaint: [] Interval history: Ms. Gaytan is a 53 year old F with a known history of hypertension/obesity and coronary artery disease who presents to the ER with multiple complaints including weakness lethargic malaise, gradual deterioration in functional status after sustaining a fall a few days ago off her wheelchair that resulted in left supracondylar fracture humerus along with injury to the left lower extremity resulting in hematoma. Patient was placed in a cast and sling and has been at [place] unable to care for self. She has experienced a gradual decline in health and has been battling with recurrent UTIs and has been recently on antibiotics. She however denies expressing fever, diarrhea, dysuria, bloody stool. She further denies headache photophobia but has gradually gotten increasingly confused. Initial workup in the ER was consistent with recurrent UTI with pyuria/elevated lactate and left lower extremity hematoma/cellulitis. Patient was started on antibiotics and hospitalist service was consulted During the time of evaluation patient is fatigued and lethargic and was able to answer some questions. She denies lightheadedness, dizziness, seizure episode. She attributes the fall with her motorized chair toppling over the Rug 01/05-patient clinically improved. Wound care on board. MRI lower extremity pending to rule out fracture/osteomyelitis. Possible drainage in 24 hours with wound care. Case discussed with orthopedics for left supracondylar fracture evaluation. Ongoing pain management. Echocardiogram pending. No overnight fever chills nausea vomiting. - Constitutional Vitals: Vital Signs Temp Pulse Resp BP Pulse Ox 97.7 F 84 18 111/65 96 01/05/19 12:11 01/05/19 12:11 01/05/19 12:11 01/05/19 12:11 01/05/19 12:11 Period Temp Pulse Resp BP Sys/Street Pulse Ox Last 24 Hr 97.2 F-98.6 F 65-91 16-22 103-120/60-85 92-98 Intake and Output 01/04/19 01/05/19 01/05/19 21:59 05:59 13:59 Intake Total 290 50 500 Output Total 1000 1000 Balance -710 -950 500 Weight 260 lb 260 lb Patient Weight 01/06/19 05:59 Weight 260 lb Intake & Output: Intake & Output 01/04/19 01/05/19 01/05/19 21:59 05:59 13:59 Intake Total 290 50 500 Output Total 1000 1000 Balance -710 -950 500 Weight 260 lb 260 lb Intake: IV 50 50 100 Zosyn 3.375 gm In Dextrose 5% 50 50 100 in Water 50 ml @ 100 mls/hr IV Q6H [facility] Rx#:[id number] Oral 240 400 Output: Void Amount 1000 1000 Other: Meal Dinner Breakfast Percent of Meal Consumed 100% 100% Feeding Ability Independent Urine Appearance Sediment Urine Color Dark Yellow Urine Odor Normal General appearance: no acute distress Exam: Alert and oriented No anxiety Patient bruises/suture right brow Nonlabored breathing Left arm sling/cast Left leg dressing Medical - PN: Obj Da - Labs CBC & Chem 7: 01/05/19 04:18 01/05/19 04:18 Labs: Abnormal Lab Results 01/05/19 01/05/19 01/04/19 04:18 04:18 10:34 RBC 3.06 L Hgb 8.9 L Hct 27.8 L MPV 7.2 L Gran % Lymph % (Auto) Lymph # (Auto) POC PT POC INR VBG Lactic Acid 3.5 H BUN AST Albumin 3.0 L Albumin/Globulin Ratio Triglycerides 176 H Urine Glucose (UA) Urine Occult Blood Ur Leukocyte Esterase Urine RBC Urine WBC Urine Bacteria Urine Yeast (Budding) 01/04/19 01/04/19 01/04/19 10:34 10:33 10:26 RBC 3.49 L Hgb 10.3 L Hct 31.5 L MPV 7.2 L Gran % 79.8 H Lymph % (Auto) 11.3 L Lymph # (Auto) 1.0 L POC PT POC INR VBG Lactic Acid BUN 23 H AST 49 H Albumin Albumin/Globulin Ratio 0.9 L Triglycerides Urine Glucose (UA) >=500 A Urine Occult Blood >=1.0 A Ur Leukocyte Esterase 500 A Urine RBC > 182 H Urine WBC > 182 H Urine Bacteria Few A Urine Yeast (Budding) Many A 01/04/19 10:23 RBC Hgb Hct MPV Gran % Lymph % (Auto) Lymph # (Auto) POC PT 33.2 H POC INR 2.9 H VBG Lactic Acid BUN AST Albumin Albumin/Globulin Ratio Triglycerides Urine Glucose (UA) Urine Occult Blood Ur Leukocyte Esterase Urine RBC Urine WBC Urine Bacteria Urine Yeast (Budding) Meds: Medications Acetaminophen (Tylenol) 650 mg PO Q4-6HP PRN PRN Reason: PAIN/FEVER > 101 Hydrocodone Bitart/Acetaminophen (Jones 10/325mg) 1 tab PO QIDP PRN PRN Reason: Pain Last Admin: 01/05/19 02:55 Dose: 1 tab Documented by: Atorvastatin Calcium (Lipitor) 10 mg PO HS [facility] Last Admin: 01/04/19 21:43 Dose: 10 mg Documented by: Bupropion HCl (Wellbutrin Xl) 450 mg PO DAILY [facility] Last Admin: 01/05/19 09:50 Dose: 450 mg Documented by: Cyanocobalamin (Vitamin B-12) 2,500 mcg PO DAILY [facility] Last Admin: 01/05/19 09:51 Dose: 2,500 mcg Documented by: Dextrose (Dextrose 50%) 0 ml IV UD PRN PRN Reason: Hypoglycemia Diagnostic Test (Pha) (Accu-Chek) 1 each FS ACHS [facility] Last Admin: 01/05/19 12:01 Dose: 1 each Documented by: Docusate Sodium (Colace) 100 mg PO BID [facility] Last Admin: 01/05/19 09:52 Dose: 100 mg Documented by: Famotidine (Pepcid) 20 mg PO BIDAC [facility] Furosemide (Lasix) 20 mg PO BID [facility] Last Admin: 01/05/19 09:52 Dose: 20 mg Documented by: Gabapentin (Neurontin) 900 mg PO QID [facility] Last Admin: 01/05/19 12:46 Dose: 900 mg Documented by: Glucose (Insta-Glucose) 15 gm PO PRN PRN PRN Reason: Hypoglycemia Magnesium Sulfate (Magnesium Sulfate) 2 gm in 50 mls @ 50 mls/hr IV UD PRN PRN Reason: MG = or < 1.7 Acetaminophen (Ofirmev) 1,000 mg in 100 mls @ 200 mls/hr IV Q6HP PRN PRN Reason: PAIN/FEVER > 101 Piperacillin Sod/Tazobactam (Sod 3.375 gm/ Dextrose) 50 mls @ 100 mls/hr IV Q6H [facility]; Protocol Last Infusion: 01/05/19 12:17 Dose: Infused Documented by: Insulin Glargine (Lantus) 20 unit SQ BID [facility] Last Admin: 01/05/19 09:47 Dose: 20 units Documented by: Insulin Human Lispro (Humalog) 0 unit SQ ACHS [facility]; Protocol Last Admin: 01/05/19 12:21 Dose: Not Given Documented by: Loratadine (Claritin) 10 mg PO DAILY [facility] Last Admin: 01/05/19 09:52 Dose: 10 mg Documented by: Lorazepam (Ativan) 1 mg PO Q4HP PRN PRN Reason: Anxiety Last Admin: 01/05/19 02:55 Dose: 1 mg Documented by: Magnesium Hydroxide (Milk Of Magnesia) 30 ml PO HSP PRN PRN Reason: Constipation [facility] Last Admin: 01/05/19 07:53 Dose: 1,000 mg Documented by: Metoprolol Succinate (Toprol Xl) 100 mg PO DAILY [facility] Last Admin: 01/05/19 09:51 Dose: 100 mg Documented by: Morphine Sulfate (Ms Contin) 15 mg PO TID [facility] Last Admin: 01/05/19 09:49 Dose: 15 mg Documented by: Nitrofurantoin Macrocrystals (Macrobid) 100 mg PO BID [facility] Last Admin: 01/05/19 09:49 Dose: 100 mg Documented by: Ondansetron HCl (Zofran) 4 mg IV Q4-6HP PRN PRN Reason: Nausea And Vomiting Dapagliflozin Propanediol [Farxiga ] 10 Mg Tab 1 dose PO DAILY [facility] Last Admin: 01/05/19 11:06 Dose: Not Given Documented by: Polyethylene Glycol (Miralax) 17 gm PO BIDP PRN PRN Reason: Constipation Potassium Chloride (Klor-Con) 40 meq PO DAILYP PRN PRN Reason: K+ < 3.5 Rivaroxaban (Xarelto) 20 mg PO DAILY [facility] Last Admin: 01/05/19 09:52 Dose: 20 mg Documented by: Senna/Docusate Sodium (Senna Plus Tablet) 1 tab PO HS [facility] Last Admin: 01/04/19 21:47 Dose: 1 tab Documented by: Sitagliptin Phosphate (Januvia) 100 mg PO DAILY [facility] Last Admin: 01/05/19 09:00 Dose: 100 mg Documented by: Sodium Biphosphate/Sodium Phosphate (Fleets Adult) 1 dose NC DAILYP PRN PRN Reason: Constipation Sodium Chloride (Saline Flush) 10 ml IV Q8 [facility] Last Admin: 01/05/19 05:32 Dose: 10 ml Documented by: Spironolactone (Aldactone) 50 mg PO BID [facility] Last Admin: 01/05/19 09:50 Dose: 50 mg Documented by: Venlafaxine HCl (Effexor Xr) 150 mg PO DAILY [facility] Last Admin: 01/05/19 09:52 Dose: 150 mg Documented by: Medical - PN: A/P - Time Spent With Patient Total time spent is greater than 50% in coordination of care (as documented) at patient's floor/unit and/or counseling patient: 25 - 35 minutes (1) Complicated UTI (urinary tract infection) Status: Acute Assessment and plan: * Complicated GNR UTI-failed outpatient treatment. Continue antibiotic coverage. Await cultures/sensitivities * Recurrent falls rule out cardiac syncope/arrhythmia. Echocardiogram to rule out valvular lesion/telemetry no overnight arrhythmias/continue PT OT/gait and safety eval. * Left lower extremity infected hematoma/cellulitis-MRI left lower extremity/wound care consult. Likely undergo incision and drainage in 24 hours * Recent left supracondylar humerus fracture-currently on cast/sling. Orthopedics consulted. Continue pain management. * Significant self-care deficits/generalized deconditioning and weakness. Continue aggressive PT OT/nutrition support. Case management to coordinate discharge planning to [facility] home. * DM type II continue basal prandial insulin/Farxiga * History of CAD-beta santiago statin/spironolactone * Anticoagulation on rivaroxaban * Neuropathy continue gabapentin/cyclobenzaprine * Anxiety disorder continue venlafaxine * Morbid obesity * Full code Plan * Continue pain management * Wound care/orthopedic consult * MRI lower extremity * Antibiotic coverage for failed outpatient UTI * Pre-existing medical condition management as above * Aggressive PT OT/nutritional support Current Visit: Yes Medical - PN: Qual - VTE Deep Vein Thrombosis/Pulmonary Embolism Present on Admission: No
--- NOTE | 2019-01-05 15:00 | General Surgery Progress Note ---
Subjective Patient reports: other (HD stable during [facility]. No concerns reported. AWAITS imaging studies ECHO cardiogram and MRI LEFT leg.) Narrative: Note initiated : 01/05/19 at 2:56 pm Service Date, if different from initiated Date: [] Patient: Jessica Gaytan a 53 y/o F admitted on 01/04/19 for Decreased LOC, Spastic movement in arms. Chief Complaint: [] Objective Temp Pulse Resp BP Pulse Ox 97.7 F 84 18 111/65 96 01/05/19 12:11 01/05/19 12:11 01/05/19 12:11 01/05/19 12:11 01/05/19 12:11 AVSS. No interval changes in clinical examination. - Additional Data Intake & Output - Last 24 hours: Intake & Output 01/03/19 01/04/19 01/05/19 01/06/19 05:59 05:59 05:59 05:59 Intake Total 1340 850 Output Total 2000 700 Balance -660 150 Weight 260 lb 260 lb - Labs 01/05/19 04:18 01/05/19 04:18 Diabetes panel 01/05/19 Range/Units 04:18 Sodium 142 (133-145) mmol/L Potassium 3.9 (3.3-5.1) mmol/L Chloride 105 (96-108) mmol/L Carbon Dioxide 25 (22-30) mmol/L BUN 16 (6-20) mg/dl Creatinine 0.8 (0.6-1.1) mg/dl Glucose 77 (70-105) mg/dL Calcium 8.6 (8.6-10.4) mg/dl AST 36 (0-37) U/l ALT 28 (0-40) U/l Alkaline Phosphatase 53 (39-117) U/L Total Protein 6.1 (5.9-8.4) gm/dL Albumin 3.0 L (3.2-5.2) gm/dL Triglycerides 176 H (<150) mg/dl Calcium panel 01/05/19 Range/Units 04:18 Calcium 8.6 (8.6-10.4) mg/dl Phosphorus 2.9 (2.7-4.5) mg/dL Albumin 3.0 L (3.2-5.2) gm/dL Pituitary panel 01/05/19 Range/Units 04:18 Sodium 142 (133-145) mmol/L Potassium 3.9 (3.3-5.1) mmol/L Chloride 105 (96-108) mmol/L Carbon Dioxide 25 (22-30) mmol/L BUN 16 (6-20) mg/dl Creatinine 0.8 (0.6-1.1) mg/dl Glucose 77 (70-105) mg/dL Calcium 8.6 (8.6-10.4) mg/dl Adrenal panel 01/05/19 Range/Units 04:18 Sodium 142 (133-145) mmol/L Potassium 3.9 (3.3-5.1) mmol/L Chloride 105 (96-108) mmol/L Carbon Dioxide 25 (22-30) mmol/L BUN 16 (6-20) mg/dl Creatinine 0.8 (0.6-1.1) mg/dl Glucose 77 (70-105) mg/dL Calcium 8.6 (8.6-10.4) mg/dl Total Bilirubin 0.7 (0.0-1.0) mg/dL AST 36 (0-37) U/l ALT 28 (0-40) U/l Alkaline Phosphatase 53 (39-117) U/L Total Protein 6.1 (5.9-8.4) gm/dL Albumin 3.0 L (3.2-5.2) gm/dL Assessment and Plan (1) Traumatic hematoma of left lower leg Status: Acute Current Visit: Yes (2) Fall Status: Acute Current Visit: No (3) Laceration of head Status: Acute Current Visit: No (4) Left elbow fracture Status: Acute Current Visit: No (5) Urinary tract bacterial infections Status: Chronic Current Visit: No - Narrative A/P Narrative: Assessment: Hemodynamically stable. No interval changes since last examined. Awaits ordered imaging studies. ( MRI Left LEG and ECHO cardiogram ) Plan: Review all investigation studies and results. Later OR debridement, pulse lavage and tissue for biopsy / cultures. - Time Spent With Patient Total time spent is greater than 50% in coordination of care (as documented) at patient's floor/unit and/or counseling patient:
[2019-01-05] MEDS ORDERED: LORazepam 2 MG/ML VIAL IV ONE (16:40)
[2019-01-05] MEDS: FAMOTIDINE 20 MG TABLET PO SCH (16:44)
[2019-01-05] MEDS ORDERED: GADOBENATE DIMEGLUMINE 20 ML/VIAL IV ONE (17:51)
--- NOTE | 2019-01-05 18:34 | Magnetic Resonance Report ---
History: Fell off scooter with a hematoma in the left lower leg TECHNIQUE: Multiplanar imaging was performed using multiple pulse sequences. 20 mL MultiHance contrast was injected intravenously and postcontrast T1-weighted views were acquired. FINDINGS: There is a moderate size well-circumscribed subcutaneous hematoma located anteriorly and laterally in the midportion of the left lower leg. It measures 2.4 x 3.8 cm in transverse dimension and 6.1 cm in length. It has mixed signal characteristics within it due to blood breakdown products of varying age. Surrounding this there is a moderate moderate cellulitis and subcutaneous edema.. Most of the edema is located anteriorly and laterally. Postcontrast views show a thick serpiginous band of abnormal enhancement within the superior margin of the hematoma. This measures approximately 1.8 cm in length and 7 mm thickness. It also has increased signal on the nonenhanced short TI inversion recovery images. It is low signal on noncontrast T1. I see no abnormal dilated vessels adjacent to the hematoma The underlying tibia and fibula are normal without evidence of fracture or bone marrow edema. There is severe atrophy and fatty infiltration of all the muscles throughout the calf. There is no edema in the muscles. IMPRESSION: Complex subcutaneous hematoma anteriorly and laterally in the midportion left lower leg. This could be infected. Drainage is recommended. Cellulitis in the mid and lower calf No evidence of osteomyelitis or fracture Interpreted and Authenticated by: Jeramie Polo 01/05/19
--- NOTE | 2019-01-05 20:58 | General Surgery Progress Note ---
Subjective Patient reports: other (Saw patient along with Teresa Rn In patient wound care nurse. Reviewed MRI of left leg. ) Narrative: Note initiated : 01/05/19 at 8:54 pm Service Date, if different from initiated Date: [] Patient: Jessica Gaytan a 53 y/o F admitted on 01/04/19 for Decreased LOC, Spastic movement in arms. Chief Complaint: [] Objective Temp Pulse Resp BP Pulse Ox 97.0 F 81 14 115/68 90 01/05/19 18:49 01/05/19 18:49 01/05/19 18:49 01/05/19 18:49 01/05/19 18:49 AVSS. No changes JUAN JOSE. Left leg hematoma draining serous fluid. Cellulitis resolving. - Additional Data Intake & Output - Last 24 hours: Intake & Output 01/03/19 01/04/19 01/05/19 01/06/19 05:59 05:59 05:59 05:59 Intake Total 1340 1200 Output Total 2000 1600 Balance -660 -400 Weight 260 lb 260 lb - Labs 01/05/19 04:18 01/05/19 04:18 Diabetes panel 01/05/19 Range/Units 04:18 Sodium 142 (133-145) mmol/L Potassium 3.9 (3.3-5.1) mmol/L Chloride 105 (96-108) mmol/L Carbon Dioxide 25 (22-30) mmol/L BUN 16 (6-20) mg/dl Creatinine 0.8 (0.6-1.1) mg/dl Glucose 77 (70-105) mg/dL Calcium 8.6 (8.6-10.4) mg/dl AST 36 (0-37) U/l ALT 28 (0-40) U/l Alkaline Phosphatase 53 (39-117) U/L Total Protein 6.1 (5.9-8.4) gm/dL Albumin 3.0 L (3.2-5.2) gm/dL Triglycerides 176 H (<150) mg/dl Calcium panel 01/05/19 Range/Units 04:18 Calcium 8.6 (8.6-10.4) mg/dl Phosphorus 2.9 (2.7-4.5) mg/dL Albumin 3.0 L (3.2-5.2) gm/dL Pituitary panel 01/05/19 Range/Units 04:18 Sodium 142 (133-145) mmol/L Potassium 3.9 (3.3-5.1) mmol/L Chloride 105 (96-108) mmol/L Carbon Dioxide 25 (22-30) mmol/L BUN 16 (6-20) mg/dl Creatinine 0.8 (0.6-1.1) mg/dl Glucose 77 (70-105) mg/dL Calcium 8.6 (8.6-10.4) mg/dl Adrenal panel 01/05/19 Range/Units 04:18 Sodium 142 (133-145) mmol/L Potassium 3.9 (3.3-5.1) mmol/L Chloride 105 (96-108) mmol/L Carbon Dioxide 25 (22-30) mmol/L BUN 16 (6-20) mg/dl Creatinine 0.8 (0.6-1.1) mg/dl Glucose 77 (70-105) mg/dL Calcium 8.6 (8.6-10.4) mg/dl Total Bilirubin 0.7 (0.0-1.0) mg/dL AST 36 (0-37) U/l ALT 28 (0-40) U/l Alkaline Phosphatase 53 (39-117) U/L Total Protein 6.1 (5.9-8.4) gm/dL Albumin 3.0 L (3.2-5.2) gm/dL Assessment and Plan (1) Traumatic hematoma of left lower leg Status: Acute Current Visit: Yes (2) Fall Status: Acute Current Visit: No (3) Laceration of head Status: Acute Current Visit: No (4) Left elbow fracture Status: Acute Current Visit: No (5) Urinary tract bacterial infections Status: Chronic Current Visit: No - Time Spent With Patient Total time spent is greater than 50% in coordination of care (as documented) at patient's floor/unit and/or counseling patient: Assessment: Left leg hematoma anterior and lateral mid third. Draining. Plan: OR debridement biopsies / cultures in AM. Indication for surgery, risks, benefits and alternatives discussed with patient . All Qs answered. She understands and agrees with plan of treatment. 15 - 24 minutes
--- NOTE | 2019-01-05 21:00 | Orthopedic Consult Note ---
History of Present Illness - [facility] Patient information: Note initiated : 01/05/19 at 8:56 pm Service Date, if different from initiated Date: [] Patient: Jessica Gaytan a 53 y/o F admitted on 01/04/19 following a fall for decreased LOC, spastic movement in arms. Chief Complaint: [left elbow pain] Consult date: 01/05/19 Consult reason: fracture History of present illness: Pt is a 53 year old female with left supracondylar humerus fracture, who presented to the ER on 01/04/19 with multiple complaints including weakness lethargic malaise, gradual deterioration in functional status after sustaining a fall a few days ago off her wheelchair that resulted in left supracondylar fracture humerus along with injury to the left lower extremity resulting in hematoma. Patient was placed in a cast and sling in the ER. Denies fever/chills, headache, nausea, abd pain, dysuria, SOB, chest pain. Initial workup in the ER was consistent with recurrent UTI with pyuria/elevated lactate and left lower extremity hematoma/cellulitis. Patient was started on antibiotics and hospitalist service was consulted. ROS: 10 point review of system was performed and is negative so was discussed above Review of Systems Constitutional: as per HPI Past History Past medical history: DM type II History of cardiomyopathy Fibromyalgia Hyperlipidemia GERD Hypertension Obesity Chronic pain Degenerative joint disease History of CAD Anxiety depression Past surgical history: Gastric bypass Left toe amputation Tonsillectomy Past social history: Nonsmoker Medications and Allergies Home Medications Medication Instructions Recorded Confirmed Type Atorvastatin [Lipitor] 10 mg PO HS 12/30/16 01/04/19 History Cyclobenzaprine [Flexeril] 10 mg PO TID 12/30/16 01/04/19 History Insulin Glargine,Hum.rec.anlog 20 unit SQ BID 12/30/16 01/04/19 History [Basaglar Priyaikpen U-100] Insulin Lispro [Humalog] See Protocol SQ TIDAC 12/30/16 01/04/19 History Loratadine [Loradamed] 10 mg PO DAILY 12/30/16 01/04/19 History Magnesium Hydroxide [Milk of 30 ml PO DAILYP PRN 12/30/16 01/04/19 History Magnesia] Metoprolol Succinate [Toprol] 100 mg PO DAILY 12/30/16 01/04/19 History Ranitidine HCl [Acid Cemetery Laborer] 150 mg PO BIDAC 12/30/16 01/04/19 History Rivaroxaban [Xarelto] 20 mg PO DAILY 12/30/16 01/04/19 History Spironolactone [Aldactone] 50 mg PO BID 12/30/16 01/04/19 History Tylenol 650 mg PO Q6HP PRN 12/30/16 01/04/19 History Venlafaxine HCl [Venlafaxine HCl 75 mg PO DAILY 12/30/16 01/04/19 History ER] Venlafaxine HCl [Venlafaxine HCl 150 mg PO DAILY 12/30/16 01/04/19 History ER] metFORMIN HCL [Glucophage] 1,000 mg PO BIDAC 12/30/16 01/04/19 History Dapagliflozin Propanediol [Farxiga] 10 mg PO DAILY 11/02/17 01/04/19 History Furosemide [Lasix] 20 mg PO BID 11/02/17 01/04/19 History Nitrofurantoin Macrocrystal 100 mg PO BID 7 Days #14 cap 12/31/18 01/04/19 Rx [Nitrofurantoin] Aripiprazole [Abilify] 30 mg PO HS 01/04/19 01/04/19 History Cholecalciferol (Vitamin D3) [D3 2,000 unit PO DAILY 01/04/19 01/04/19 History Dots] Cyanocobalamin (Vitamin B-12) 2,500 mcg PO DAILY 01/04/19 01/04/19 History [Vitamin B12] Docusate Sodium [Colace] 100 mg PO BID 01/04/19 01/04/19 History Gabapentin [Neurontin] 900 mg PO QID 01/04/19 01/04/19 History HYDROcodone/APAP 10/325MG 1 tab PO QIDP PRN 01/04/19 01/04/19 History LORazepam 1 mg PO Q4HP PRN 01/04/19 01/04/19 History Loperamide [Imodium] 2 mg PO PRN PRN MDD 8 01/04/19 01/04/19 History Polyethylene Glycol 3350 [Miralax] 1 packet PO BIDP PRN 01/04/19 01/04/19 History buPROPion HCL [Forfivo Xl] 450 mg PO DAILY 01/04/19 01/04/19 History morphine [Ms Contin] 15 mg PO TID 01/04/19 01/04/19 History traZODone HCL [Trazodone HCl] 300 mg PO HS 01/04/19 01/04/19 History Allergies Allergy/AdvReac Type Severity Reaction Status Date / Time Penicillins Allergy Mild Rash Verified 01/04/19 10:07 Physical Examination - Elbow left Pain modifiers: with motion (Left elbow: splint and sling in place. Significant ecchymosis noted about the upper arm in the axillary region. ROM deferred. Sensation intact throughout the shoulder as well as the entire hand and digits. Full ROM at the wrist and hand. Hand is warm and well perfused. ) Assessment and Plan - Narrative A/P Narrative: Pt is a 53 yo female with left supracondylar humerus fracture. LOS 1 day. Discussed the left elbow injury with patient the treatment options including nonsurgical vs surgical intervention. Recommended operative fixation for definitive treatment of the fracture. She is scheduled for evacuation of the left lower leg hematoma tomorrow, 01/06/19. Repeat radiographs were ordered today. Plan to ideally coordinate with general surgery for operative intervention, soonest being tomorrow. She understands the plan and agrees. Her questions were answered. General Adult HPI - General Source: patient (Well developed, obese female. Alert, oriented, interactive and appropriate. In no acute distress.) - Related Data Home Medications Medication Instructions Recorded Confirmed Atorvastatin [Lipitor] 10 mg PO HS 12/30/16 01/04/19 Cyclobenzaprine [Flexeril] 10 mg PO TID 12/30/16 01/04/19 Insulin Glargine,Hum.rec.anlog 20 unit SQ BID 12/30/16 01/04/19 [Basaglar Kwikpen U-100] Insulin Lispro [Humalog] See Protocol SQ TIDAC 12/30/16 01/04/19 Loratadine [Loradamed] 10 mg PO DAILY 12/30/16 01/04/19 Magnesium Hydroxide [Milk of 30 ml PO DAILYP PRN 12/30/16 01/04/19 Magnesia] Metoprolol Succinate [Toprol] 100 mg PO DAILY 12/30/16 01/04/19 Ranitidine HCl [Acid Cemetery Laborer] 150 mg PO BIDAC 12/30/16 01/04/19 Rivaroxaban [Xarelto] 20 mg PO DAILY 12/30/16 01/04/19 Spironolactone [Aldactone] 50 mg PO BID 12/30/16 01/04/19 Tylenol 650 mg PO Q6HP PRN 12/30/16 01/04/19 Venlafaxine HCl [Venlafaxine HCl 75 mg PO DAILY 12/30/16 01/04/19 ER] Venlafaxine HCl [Venlafaxine HCl 150 mg PO DAILY 12/30/16 01/04/19 ER] metFORMIN HCL [Glucophage] 1,000 mg PO BIDAC 12/30/16 01/04/19 Dapagliflozin Propanediol [Farxiga] 10 mg PO DAILY 11/02/17 01/04/19 Furosemide [Lasix] 20 mg PO BID 11/02/17 01/04/19 Aripiprazole [Abilify] 30 mg PO HS 01/04/19 01/04/19 Cholecalciferol (Vitamin D3) [D3 2,000 unit PO DAILY 01/04/19 01/04/19 Dots] Cyanocobalamin (Vitamin B-12) 2,500 mcg PO DAILY 01/04/19 01/04/19 [Vitamin B12] Docusate Sodium [Colace] 100 mg PO BID 01/04/19 01/04/19 Gabapentin [Neurontin] 900 mg PO QID 01/04/19 01/04/19 HYDROcodone/APAP 10/325MG 1 tab PO QIDP PRN 01/04/19 01/04/19 LORazepam 1 mg PO Q4HP PRN 01/04/19 01/04/19 Loperamide [Imodium] 2 mg PO PRN PRN MDD 8 01/04/19 01/04/19 Polyethylene Glycol 3350 [Miralax] 1 packet PO BIDP PRN 01/04/19 01/04/19 buPROPion HCL [Forfivo Xl] 450 mg PO DAILY 01/04/19 01/04/19 morphine [Ms Contin] 15 mg PO TID 01/04/19 01/04/19 traZODone HCL [Trazodone HCl] 300 mg PO HS 01/04/19 01/04/19 Previous Rx's Medication Instructions Recorded Nitrofurantoin Macrocrystal 100 mg PO BID 7 Days #14 cap 12/31/18 [Nitrofurantoin] Allergies Allergy/AdvReac Type Severity Reaction Status Date / Time Penicillins Allergy Mild Rash Verified 01/04/19 10:07
[2019-01-05] MEDS: ATORVASTATIN 20 MG TABLET PO SCH (22:43)
[2019-01-05] MEDS: SENNOSIDES/DOCUSATE SODIUM 1 TAB TABLET PO SCH (23:51)
[2019-01-05] MEDS: ARIPIPRAZOLE 20 MG TABLET PO SCH (23:51)
[2019-01-06] MEDS: LORazepam 1 MG TABLET PO PRN (01:29)
[2019-01-06] MEDS: HYDROcodone/APAP 10/325MG TABLET PO PRN ×2 (02:06→23:08)
[2019-01-06] MEDS: 0.9 % SODIUM CHLORIDE 10 ML SYRINGE IV SCH ×3 (06:09→20:19)
[2019-01-06] MEDS: PIPERACILLIN SODIUM/TAZOBACTAM 3.375 GM in DEXTROSE 5% IN WATER 50 ML IV SCH (06:09)
[2019-01-06 06:23] LABS: Mean Cell Volume 92.2 fL (80.0-100.0); Mean Corpuscular HGB Conc 32.1 g/dL (31.0-36.0); Platelet Count 245 K/mcL (140-440); RBC 3.11 M/mcL (4.00-5.20); Red Cell Distribution Width 13.8 % (11.5-14.5)
[2019-01-06 06:24] LABS: ALT/SGPT 29 U/l (0-40); Albumin 2.9 gm/dL (3.2-5.2); Albumin/Globulin Ratio 0.8 (1.0-2.3); Alkaline Phosphatase 52 U/L (39-117); Bilirubin,Direct < 0.2 mg/dL (0.0-0.3); Blood Urea Nitrogen 18 mg/dl (6-20); Gamma Glutamyl Transpeptidase 20 U/L (5-36); Uric Acid 5.6 mg/dL (2.5-8.0)
[2019-01-06] MEDS: INSULIN LISPRO 1 UNIT/0.01 ML UNIT SQ SCH ×4 (07:30→20:54)
[2019-01-06 07:46] LABS: Eosinophils % (Manual) 1 % (0-7); Lymphocytes % 10 % (15-49); Monocytes % (Manual) 3 % (1-12); Platelet Estimate NORMAL (NORMAL); RBC Morphology NORMAL (NORMAL); Segmented Neutrophils % 86 % (38-78)
[2019-01-06] MEDS ORDERED: HYDROmorphone 2 MG/ML VIAL IV PRN (08:32)
--- NOTE | 2019-01-06 08:55 | XRay Report ---
HISTORY: Supracondylar fracture of the left elbow FINDINGS: There is a comminuted supracondylar fracture of the distal humerus. Bone detail is obscured by overlying plaster cast. The alignment is unchanged from the prior exam done on 12/30/18. The radius and ulna remain aligned with the humerus. IMPRESSION: stable supracondylar fracture Interpreted and Authenticated by: Jeramie Polo 01/06/19
[2019-01-06] MEDS: buPROPion 150 MG TAB.XL.24H PO SCH (09:05)
[2019-01-06] MEDS: METOPROLOL SUCCINATE 50 MG TAB.XL.24H PO SCH (09:06)
[2019-01-06] MEDS: VENLAFAXINE 150 MG CAP.XL.24H PO SCH (09:06)
[2019-01-06] MEDS: metFORMIN 500 MG TABLET PO SCH ×2 (09:08→17:23)
[2019-01-06] MEDS: FAMOTIDINE 20 MG TABLET PO SCH ×2 (09:08→17:23)
[2019-01-06] MEDS: SPIRONOLACTONE 25 MG TABLET PO SCH ×2 (09:09→20:17)
[2019-01-06] MEDS: LORATADINE 10 MG TABLET PO SCH (09:09)
[2019-01-06] MEDS: sitaGLIPtin 100 MG TABLET PO SCH (09:09)
[2019-01-06] MEDS: INSULIN GLARGINE, HUMAN 1 UNIT/0.01 ML SQ SCH ×2 (09:09→20:54)
[2019-01-06] MEDS: DOCUSATE SODIUM 100 MG CAPSULE PO SCH ×2 (09:09→20:17)
[2019-01-06] MEDS: FUROSEMIDE 20 MG TABLET PO SCH ×2 (09:09→20:17)
[2019-01-06] MEDS: GABAPENTIN 300 MG CAPSULE PO SCH ×4 (09:10→20:17)
[2019-01-06] MEDS: NITROFURANTOIN SR 100 MG CAPSULE PO SCH ×2 (09:10→20:17)
[2019-01-06] MEDS: morphine 15 MG TAB.SR.12H PO SCH ×3 (09:10→20:19)
[2019-01-06] MEDS: Dapagliflozin Propanediol [Farxiga] 10 mg Tab PO SCH (09:10)
[2019-01-06] MEDS: CYANOCOBALAMIN (VITAMIN B-12) 500 MCG TABLET PO SCH (09:10)
[2019-01-06] MEDS: RIVAROXABAN 20 MG TABLET PO SCH (09:11)
--- NOTE | 2019-01-06 09:32 | Internal Med Progress Note ---
Medical - PN: Subj Patient information: Note initiated : 01/06/19 at 9:29 am Service Date, if different from initiated Date: [] Patient: Jessica Gatyan a 53 y/o F admitted on 01/04/19 for Decreased LOC, Spastic movement in arms. Chief Complaint: [] Interval history: Ms. Gaytan is a 53 year old F with a known history of hypertension/obesity and coronary artery disease who presents to the ER with multiple complaints including weakness lethargic malaise, gradual deterioration in functional status after sustaining a fall a few days ago off her wheelchair that resulted in left supracondylar fracture humerus along with injury to the left lower extremity resulting in hematoma. Patient was placed in a cast and sling and has been at [place] unable to care for self. She has experienced a gradual decline in health and has been battling with recurrent UTIs and has been recently on antibiotics. She however denies expressing fever, diarrhea, dysuria, bloody stool. She further denies headache photophobia but has gradually gotten increasingly confused. Initial workup in the ER was consistent with recurrent UTI with pyuria/elevated lactate and left lower extremity hematoma/cellulitis. Patient was started on antibiotics and hospitalist service was consulted During the time of evaluation patient is fatigued and lethargic and was able to answer some questions. She denies lightheadedness, dizziness, seizure episode. She attributes the fall with her motorized chair toppling over the Rug 01/05-patient clinically improved. Wound care on board. MRI lower extremity pending to rule out fracture/osteomyelitis. Possible drainage in 24 hours with wound care. Case discussed with orthopedics for left supracondylar fracture evaluation. Ongoing pain management. Echocardiogram pending. No overnight fever chills nausea vomiting. 01/06- patient doing well. Will be undergoing hematoma evacuation/left arm fracture repair. Surgery and orthopedics on board. No overnight events. No concerns or staff. Adequate pain management. Currently nothing by mouth. Will review postop - Constitutional Vitals: Vital Signs Temp Pulse Resp BP Pulse Ox 98.6 F 92 H 14 122/30 98 01/06/19 08:00 01/06/19 08:00 01/06/19 08:00 01/06/19 08:00 01/06/19 08:00 Period Temp Pulse Resp BP Sys/Street Pulse Ox Last 24 Hr 95 F-99.0 F 69-92 14-18 102-131/30-84 90-98 Intake and Output 01/05/19 01/06/19 01/06/19 21:59 05:59 13:59 Intake Total 1060 250 50 Output Total 1600 1650 Balance -540 -1400 50 Weight 261 lb Intake & Output: Intake & Output 01/05/19 01/06/19 01/06/19 21:59 05:59 13:59 Intake Total 1060 250 50 Output Total 1600 1650 Balance -540 -1400 50 Weight 261 lb Intake: IV 100 50 Zosyn 3.375 gm In Dextrose 5% 100 50 in Water 50 ml @ 100 mls/hr IV Q6H [facility] Rx#:[id number] Oral 1060 150 Output: Void Amount 1600 1650 Other: Meal Dinner Percent of Meal Consumed 100% Feeding Ability Independent Urine Appearance Clear Urine Color Dark Yellow Straw Urine Odor Strong Normal General appearance: morbidly obese, no acute distress Exam: Left arm in sling Left leg hematoma dressing Resting comfortably Bruises face including right brow suture Nonlabored breathing Medical - PN: Obj Da - Labs CBC & Chem 7: 01/06/19 04:00 01/06/19 03:59 Labs: Abnormal Lab Results 01/06/19 01/06/19 01/06/19 05:45 04:00 03:59 RBC 3.11 L Hgb 9.2 L Hct 28.7 L MPV 7.2 L Gran % Lymph % (Auto) Lymph # (Auto) Seg Neutrophils % 86 H Lymphocytes % 10 L POC PT 16.4 H POC INR 1.4 H VBG Lactic Acid BUN Glucose 67 L AST Lactate Dehydrogenase 273 H Albumin 2.9 L Albumin/Globulin Ratio 0.8 L Triglycerides 179 H Urine Glucose (UA) Urine Occult Blood Ur Leukocyte Esterase Urine RBC Urine WBC Urine Bacteria Urine Yeast (Budding) 01/05/19 01/05/19 01/04/19 04:18 04:18 10:34 RBC 3.06 L Hgb 8.9 L Hct 27.8 L MPV 7.2 L Gran % Lymph % (Auto) Lymph # (Auto) Seg Neutrophils % Lymphocytes % POC PT POC INR VBG Lactic Acid 3.5 H BUN Glucose AST Lactate Dehydrogenase Albumin 3.0 L Albumin/Globulin Ratio Triglycerides 176 H Urine Glucose (UA) Urine Occult Blood Ur Leukocyte Esterase Urine RBC Urine WBC Urine Bacteria Urine Yeast (Budding) 01/04/19 01/04/19 01/04/19 10:34 10:33 10:26 RBC 3.49 L Hgb 10.3 L Hct 31.5 L MPV 7.2 L Gran % 79.8 H Lymph % (Auto) 11.3 L Lymph # (Auto) 1.0 L Seg Neutrophils % Lymphocytes % POC PT POC INR VBG Lactic Acid BUN 23 H Glucose AST 49 H Lactate Dehydrogenase Albumin Albumin/Globulin Ratio 0.9 L Triglycerides Urine Glucose (UA) >=500 A Urine Occult Blood >=1.0 A Ur Leukocyte Esterase 500 A Urine RBC > 182 H Urine WBC > 182 H Urine Bacteria Few A Urine Yeast (Budding) Many A 01/04/19 10:23 RBC Hgb Hct MPV Gran % Lymph % (Auto) Lymph # (Auto) Seg Neutrophils % Lymphocytes % POC PT 33.2 H POC INR 2.9 H VBG Lactic Acid BUN Glucose AST Lactate Dehydrogenase Albumin Albumin/Globulin Ratio Triglycerides Urine Glucose (UA) Urine Occult Blood Ur Leukocyte Esterase Urine RBC Urine WBC Urine Bacteria Urine Yeast (Budding) Meds: Medications Acetaminophen (Tylenol) 650 mg PO Q4-6HP PRN PRN Reason: PAIN/FEVER > 101 Hydrocodone Bitart/Acetaminophen ([place] 10/325mg) 1 tab PO QIDP PRN PRN Reason: Pain Last Admin: 01/06/19 02:06 Dose: 1 tab Documented by: Atorvastatin Calcium (Lipitor) 10 mg PO HS [facility] Last Admin: 01/05/19 22:43 Dose: 10 mg Documented by: Bupropion HCl (Wellbutrin Xl) 450 mg PO DAILY [facility] Last Admin: 01/06/19 09:05 Dose: 450 mg Documented by: Cyanocobalamin (Vitamin B-12) 2,500 mcg PO DAILY [facility] Last Admin: 01/06/19 09:10 Dose: Not Given Documented by: Dextrose (Dextrose 50%) 0 ml IV UD PRN PRN Reason: Hypoglycemia Diagnostic Test (Pha) (Accu-Chek) 1 each FS ACHS [facility] Last Admin: 01/06/19 07:29 Dose: 1 each Documented by: Docusate Sodium (Colace) 100 mg PO BID [facility] Last Admin: 01/06/19 09:09 Dose: Not Given Documented by: Famotidine (Pepcid) 20 mg PO BIDAC [facility] Last Admin: 01/06/19 09:08 Dose: Not Given Documented by: Furosemide (Lasix) 20 mg PO BID [facility] Last Admin: 01/06/19 09:09 Dose: Not Given Documented by: Gabapentin (Neurontin) 900 mg PO QID [facility] Last Admin: 01/06/19 09:10 Dose: Not Given Documented by: Glucose (Insta-Glucose) 15 gm PO PRN PRN PRN Reason: Hypoglycemia Hydromorphone HCl (Dilaudid) 0.5 mg IV Q4HP PRN PRN Reason: PAIN LEVEL > 6 Last Admin: 01/06/19 09:23 Dose: 0.5 mg Documented by: Magnesium Sulfate (Magnesium Sulfate) 2 gm in 50 mls @ 50 mls/hr IV UD PRN PRN Reason: MG = or < 1.7 Acetaminophen (Ofirmev) 1,000 mg in 100 mls @ 200 mls/hr IV Q6HP PRN PRN Reason: PAIN/FEVER > 101 Piperacillin Sod/Tazobactam (Sod 3.375 gm/ Dextrose) 50 mls @ 100 mls/hr IV Q6H [facility]; Protocol Last Infusion: 01/06/19 06:47 Dose: Infused Documented by: Gentamicin Sulfate 40 mg/Clindamycin Phosphate 300 mg/Bacitracin 25,000 unit/ Sodium Chloride 503 mls @ 0 mls/hr IRR ONCE ONE Stop: 01/06/19 12:01 Insulin Glargine (Lantus) 20 unit SQ BID [facility] Last Admin: 01/06/19 09:09 Dose: Not Given Documented by: Insulin Human Lispro (Humalog) 0 unit SQ ACHS [facility]; Protocol Last Admin: 01/06/19 07:30 Dose: Not Given Documented by: Loratadine (Claritin) 10 mg PO DAILY [facility] Last Admin: 01/06/19 09:09 Dose: Not Given Documented by: Lorazepam (Ativan) 1 mg PO Q4HP PRN PRN Reason: Anxiety Last Admin: 01/06/19 01:29 Dose: 1 mg Documented by: Magnesium Hydroxide (Milk Of Magnesia) 30 ml PO HSP PRN PRN Reason: Constipation Metformin HCl (Glucophage) 1,000 mg PO BIDCC [facility] Last Admin: 01/06/19 09:08 Dose: Not Given Documented by: Metoprolol Succinate (Toprol Xl) 100 mg PO DAILY [facility] Last Admin: 01/06/19 09:06 Dose: 100 mg Documented by: Morphine Sulfate (Ms Contin) 15 mg PO TID [facility] Last Admin: 01/06/19 09:10 Dose: Not Given Documented by: Nitrofurantoin Macrocrystals (Macrobid) 100 mg PO BID [facility] Last Admin: 01/06/19 09:10 Dose: Not Given Documented by: Ondansetron HCl (Zofran) 4 mg IV Q4-6HP PRN PRN Reason: Nausea And Vomiting Dapagliflozin Propanediol [Farxiga ] 10 Mg Tab 1 dose PO DAILY [facility] Last Admin: 01/06/19 09:10 Dose: Not Given Documented by: Polyethylene Glycol (Miralax) 17 gm PO BIDP PRN PRN Reason: Constipation Potassium Chloride (Klor-Con) 40 meq PO DAILYP PRN PRN Reason: K+ < 3.5 Rivaroxaban (Xarelto) 20 mg PO DAILY [facility] Last Admin: 01/06/19 09:11 Dose: Not Given Documented by: Senna/Docusate Sodium (Senna Plus Tablet) 1 tab PO HS [facility] Last Admin: 01/05/19 23:51 Dose: 1 tab Documented by: Sitagliptin Phosphate (Januvia) 100 mg PO DAILY [facility] Last Admin: 01/06/19 09:09 Dose: Not Given Documented by: Sodium Biphosphate/Sodium Phosphate (Fleets Adult) 1 dose MD DAILYP PRN PRN Reason: Constipation Sodium Chloride (Saline Flush) 10 ml IV Q8 [facility] Last Admin: 01/06/19 06:09 Dose: 10 ml Documented by: Spironolactone (Aldactone) 50 mg PO BID [facility] Last Admin: 01/06/19 09:09 Dose: Not Given Documented by: Venlafaxine HCl (Effexor Xr) 150 mg PO DAILY [facility] Last Admin: 01/06/19 09:06 Dose: 150 mg Documented by: Medical - PN: A/P - Time Spent With Patient Total time spent is greater than 50% in coordination of care (as documented) at patient's floor/unit and/or counseling patient: 25 - 35 minutes (1) Complicated UTI (urinary tract infection) Status: Acute Assessment and plan: * Complicated Escherichia coli UTI-failed outpatient treatment. Sensitive to c ephalosporin. * Recurrent falls rule out cardiac syncope/arrhythmia. Echocardiogram to rule out valvular lesion/telemetry no overnight arrhythmias/continue PT OT/gait and safety eval. * Left lower extremity infected hematoma/cellulitis-MRI left lower extremity shows hematoma. * Recent left supracondylar humerus fracture-currently on cast/sling. Operative intervention today. Orthopedics on board. * Significant self-care deficits/generalized deconditioning and weakness. Continue aggressive PT OT/nutrition support. Case management to coordinate discharge planning to long-term home. * DM type II continue basal prandial insulin/Farxiga * History of CAD-beta santiago statin/spironolactone * Anticoagulation on rivaroxaban- currently held for surgery * Neuropathy continue gabapentin/cyclobenzaprine * Anxiety disorder continue venlafaxine * Morbid obesity * Full code Plan * Change antibiotics cephalosporin * Keep nothing by mouth and hold anticoagulation for 24 hours * Review postop * Restart anticoagulation 24 hours * Pre-existing medical condition management as above * Aggressive PT OT/nutritional support * Discharge planning per case management likely SNF Current Visit: Yes Medical - PN: Qual - VTE Deep Vein Thrombosis/Pulmonary Embolism Present on Admission: No
[2019-01-06] MEDS ORDERED: cefTRIAXone 2 GM in DEXTROSE 5% IN WATER 50 ML IV SCH (10:00)
[2019-01-06] MEDS ORDERED: [UNRECOGNIZED DRUG - OTHER] IRR ONE (12:00)
[2019-01-06] MEDS ORDERED: GENTAMICIN SULFATE IRR ONE (12:00)
[2019-01-06] MEDS ORDERED: BACITRACIN IRR ONE (12:00)
[2019-01-06] MEDS ORDERED: CLINDAMYCIN IRR ONE (12:00)
[2019-01-06] MEDS ORDERED: KETOROLAC 30 MG/ML VIAL ONE (12:09)
[2019-01-06] MEDS ORDERED: PROPOFOL 200 MG/20 ML VIAL IV ONE (12:09)
[2019-01-06] MEDS ORDERED: ONDANSETRON 4 MG/2 ML VIAL ONE (12:09)
[2019-01-06] MEDS ORDERED: GLYCOPYRROLATE 0.2 MG/ML VIAL IV ONE (12:09)
[2019-01-06] MEDS ORDERED: DEXAMETHASONE 10 MG/ML VIAL ONE (12:09)
[2019-01-06] MEDS ORDERED: KETAMINE 10 MG/ML ML ONE (12:09)
[2019-01-06] MEDS ORDERED: MIDAZOLAM 5 MG/5 ML VIAL ONE (12:09)
[2019-01-06] MEDS ORDERED: fentaNYL 100 MCG/2 ML VIAL IV ONE (12:09)
[2019-01-06] MEDS ORDERED: LIDOCAINE HCL/PF 100 MG/5 ML SYRINGE IV ONE (12:09)
[2019-01-06] MEDS ORDERED: ceFAZolin 3 GM in DEXTROSE 5% IN WATER 50 ML IV SCH (12:15)
--- NOTE | 2019-01-06 13:04 | General Surgery Procedure Note ---
Date of procedure: Note initiated : 01/06/19 at 1:02 pm Service Date, if different from initiated Date: [] Pre-op diagnosis: H/O Trauma. Hematoma Left leg. Procedure: Evacuation / Excision of hematoma and nonviable skin. Findings: Hematoma skin and subcutaneous tissue. Anesthesia: GLMA Surgeon: Burke Carvajal Estimated blood loss: 5 Pathology: other (Culture and Histology.) Description of procedure: Excision of nonviable ruptured skin and subcutaneous tissue. Evacuation of hematoma. Antibiotic irrigation and open packing. Organized blood clots about 30 ml. Condition: stable
--- NOTE | 2019-01-06 13:14 | Internal Med Progress Note ---
Medical - PN: Subj Patient information: Note initiated : 01/06/19 at 1:12 pm Service Date, if different from initiated Date: [] Patient: Jessica Gaytan a 53 y/o F admitted on 01/04/19 for Decreased LOC, Spastic movement in arms. Chief Complaint: [] Interval history: Ms. Gaytan is a 53 year old F with a known history of hypertension/obesity and coronary artery disease who presents to the ER with multiple complaints i ncluding weakness lethargic malaise, gradual deterioration in functional status after sustaining a fall a few days ago off her wheelchair that resulted in left supracondylar fracture humerus along with injury to the left lower extremity resulting in hematoma. Patient was placed in a cast and sling and has been at [place] unable to care for self. She has experienced a gradual decline in health and has been battling with recurrent UTIs and has been recently on antibiotics. She however denies expressing fever, diarrhea, dysuria, bloody stool. She further denies headache photophobia but has gradually gotten increasingly confused. Initial workup in the ER was consistent with recurrent UTI with pyuria/elevated lactate and left lower extremity hematoma/cellulitis. Patient was started on a ntibiotics and hospitalist service was consulted During the time of evaluation patient is fatigued and lethargic and was able to answer some questions. She denies lightheadedness, dizziness, seizure episode. She attributes the fall with her motorized chair toppling over the Rug 01/05-patient clinically improved. Wound care on board. MRI lower extremity pending to rule out fracture/osteomyelitis. Possible drainage in 24 hours with wound care. Case discussed with orthopedics for left supracondylar fracture evaluation. Ongoing pain management. Echocardiogram pending. No overnight fever chills nausea vomiting. 01/06- patient doing well. Will be undergoing hematoma evacuation/left arm fracture repair. Surgery and orthopedics on board. No overnight events. No concerns or staff. Adequate pain management. Currently nothing by mouth. Will review postop 01/07 - Constitutional Vitals: Vital Signs Temp Pulse Resp BP Pulse Ox 98.6 F 92 H 14 122/30 98 01/06/19 08:00 01/06/19 08:00 01/06/19 08:00 01/06/19 08:00 01/06/19 08:00 Period Temp Pulse Resp BP Sys/Street Pulse Ox Last 24 Hr 95 F-99.0 F 69-92 14-16 102-131/30-84 90-98 Intake and Output 01/05/19 01/06/19 01/06/19 21:59 05:59 13:59 Intake Total 1060 250 50 Output Total 1600 1650 900 Balance -540 1400 -850 Weight 118.388 kg Intake & Output: Intake & Output 01/05/19 01/06/19 01/06/19 21:59 05:59 13:59 Intake Total 1060 250 50 Output Total 1600 1650 900 Balance -540 -1400 -850 Weight 118.388 kg Intake: IV 100 50 Zosyn 3.375 gm In Dextrose 5% 100 50 in Water 50 ml @ 100 mls/hr IV Q6H [facility] Rx#:[id number] Oral 1060 150 Output: Void Amount 1600 1650 900 Other: Meal Dinner Percent of Meal Consumed 100% Feeding Ability Independent Urine Appearance Clear Sediment Urine Color Dark Yellow Straw Light Ivelisse Urine Odor Strong Normal Strong Exam: General: Alert, Awake, No acute Distress Eyes/N/T: EOMI, Head/Neck: neck supple, bruising of the face including right brow suture CV: RRR, No murmurs, normal s1/s2 Pulm: Clear b/l, no wheezing/rhonchi/rales Abd: soft, nontender, +BS x4 Ext: no clubbing/cyanosis. Left left arm in sling, left leg hematoma dressing in place Neuro: Alert, no focal deficits, moves all extremities, Skin: warm/dry Medical - PN: Obj Da - Labs CBC & Chem 7: 01/06/19 04:00 01/06/19 03:59 Labs: Abnormal Lab Results 01/06/19 01/06/19 01/06/19 05:45 04:00 03:59 RBC 3.11 L Hgb 9.2 L Hct 28.7 L MPV 7.2 L Gran % Lymph % (Auto) Lymph # (Auto) Seg Neutrophils % 86 H Lymphocytes % 10 L POC PT 16.4 H POC INR 1.4 H VBG Lactic Acid BUN Glucose 67 L AST Lactate Dehydrogenase 273 H Albumin 2.9 L Albumin/Globulin Ratio 0.8 L Triglycerides 179 H Urine Glucose (UA) Urine Occult Blood Ur Leukocyte Esterase Urine RBC Urine WBC Urine Bacteria Urine Yeast (Budding) 04/24/19 04/24/19 04/23/19 04:18 04:18 10:34 RBC 3.06 L Hgb 8.9 L Hct 27.8 L MPV 7.2 L Gran % Lymph % (Auto) Lymph # (Auto) Seg Neutrophils % Lymphocytes % POC PT POC INR VBG Lactic Acid 3.5 H BUN Glucose AST Lactate Dehydrogenase Albumin 3.0 L Albumin/Globulin Ratio Triglycerides 176 H Urine Glucose (UA) Urine Occult Blood Ur Leukocyte Esterase Urine RBC Urine WBC Urine Bacteria Urine Yeast (Budding) 01/04/19 01/04/19 01/04/19 10:34 10:33 10:26 RBC 3.49 L Hgb 10.3 L Hct 31.5 L MPV 7.2 L Gran % 79.8 H Lymph % (Auto) 11.3 L Lymph # (Auto) 1.0 L Seg Neutrophils % Lymphocytes % POC PT POC INR VBG Lactic Acid BUN 23 H Glucose AST 49 H Lactate Dehydrogenase Albumin Albumin/Globulin Ratio 0.9 L Triglycerides Urine Glucose (UA) >=500 A Urine Occult Blood >=1.0 A Ur Leukocyte Esterase 500 A Urine RBC > 182 H Urine WBC > 182 H Urine Bacteria Few A Urine Yeast (Budding) Many A 01/04/19 10:23 RBC Hgb Hct MPV Gran % Lymph % (Auto) Lymph # (Auto) Seg Neutrophils % Lymphocytes % POC PT 33.2 H POC INR 2.9 H VBG Lactic Acid BUN Glucose AST Lactate Dehydrogenase Albumin Albumin/Globulin Ratio Triglycerides Urine Glucose (UA) Urine Occult Blood Ur Leukocyte Esterase Urine RBC Urine WBC Urine Bacteria Urine Yeast (Budding) Meds: Medications Acetaminophen (Tylenol) 650 mg PO Q4-6HP PRN PRN Reason: PAIN/FEVER > 101 Hydrocodone Bitart/Acetaminophen (Deputy 10/325mg) 1 tab PO QIDP PRN PRN Reason: Pain Last Admin: 01/06/19 02:06 Dose: 1 tab Documented by: Atorvastatin Calcium (Lipitor) 10 mg PO HS [facility] Last Admin: 01/05/19 22:43 Dose: 10 mg Documented by: Bupropion HCl (Wellbutrin Xl) 450 mg PO DAILY [facility] Last Admin: 01/06/19 09:05 Dose: 450 mg Documented by: Cyanocobalamin (Vitamin B-12) 2,500 mcg PO DAILY [facility] Last Admin: 01/06/19 09:10 Dose: Not Given Documented by: Dextrose (Dextrose 50%) 0 ml IV UD PRN PRN Reason: Hypoglycemia Diagnostic Test (Pha) (Accu-Chek) 1 each FS [facility] Last Admin: 01/06/19 11:17 Dose: 1 each Documented by: Docusate Sodium (Colace) 100 mg PO BID [facility] Last Admin: 01/06/19 09:09 Dose: Not Given Documented by: Famotidine (Pepcid) 20 mg PO BIDAC [facility] Last Admin: 01/06/19 09:08 Dose: Not Given Documented by: Furosemide (Lasix) 20 mg PO BID [facility] Last Admin: 01/06/19 09:09 Dose: Not Given Documented by: Gabapentin (Neurontin) 900 mg PO QID [facility] Last Admin: 01/06/19 13:08 Dose: Not Given Documented by: Glucose (Insta-Glucose) 15 gm PO PRN PRN PRN Reason: Hypoglycemia Hydromorphone HCl (Dilaudid) 0.5 mg IV Q4HP PRN PRN Reason: PAIN LEVEL > 6 Last Admin: 01/06/19 09:23 Dose: 0.5 mg Documented by: Magnesium Sulfate (Magnesium Sulfate) 2 gm in 50 mls @ 50 mls/hr IV UD PRN PRN Reason: MG = or < 1.7 Acetaminophen (Ofirmev) 1,000 mg in 100 mls @ 200 mls/hr IV Q6HP PRN PRN Reason: PAIN/FEVER > 101 Ceftriaxone Sodium 2 gm/ (Dextrose) 50 mls @ 100 mls/hr IV Q24H [facility]; Protocol Last Admin: 01/06/19 10:32 Dose: 100 mls/hr Documented by: Insulin Glargine (Lantus) 20 unit SQ BID [facility] Last Admin: 01/06/19 09:09 Dose: Not Given Documented by: Insulin Human Lispro (Humalog) 0 unit SQ [facility]; Protocol Last Admin: 01/06/19 11:20 Dose: Not Given Documented by: Loratadine (Claritin) 10 mg PO DAILY [facility] Last Admin: 01/06/19 09:09 Dose: Not Given Documented by: Lorazepam (Ativan) 1 mg PO Q4HP PRN PRN Reason: Anxiety Last Admin: 01/06/19 01:29 Dose: 1 mg Documented by: Magnesium Hydroxide (Milk Of Magnesia) 30 ml PO HSP PRN PRN Reason: Constipation Metformin HCl (Glucophage) 1,000 mg PO BIDCC [facility] Last Admin: 01/06/19 09:08 Dose: Not Given Documented by: Metoprolol Succinate (Toprol Xl) 100 mg PO DAILY [facility] Last Admin: 01/06/19 09:06 Dose: 100 mg Documented by: Morphine Sulfate (Ms Contin) 15 mg PO TID [facility] Last Admin: 01/06/19 09:10 Dose: Not Given Documented by: Nitrofurantoin Macrocrystals (Macrobid) 100 mg PO BID [facility] Last Admin: 01/06/19 09:10 Dose: Not Given Documented by: Ondansetron HCl (Zofran) 4 mg IV Q4-6HP PRN PRN Reason: Nausea And Vomiting Dapagliflozin Propanediol [Farxiga ] 10 Mg Tab 1 dose PO DAILY [facility] Last Admin: 01/06/19 09:10 Dose: Not Given Documented by: Polyethylene Glycol (Miralax) 17 gm PO BIDP PRN PRN Reason: Constipation Potassium Chloride (Klor-Con) 40 meq PO DAILYP PRN PRN Reason: K+ < 3.5 Senna/Docusate Sodium (Senna Plus Tablet) 1 tab PO HS [facility] Last Admin: 01/05/19 23:51 Dose: 1 tab Documented by: Sitagliptin Phosphate (Januvia) 100 mg PO DAILY [facility] Last Admin: 01/06/19 09:09 Dose: Not Given Documented by: Sodium Biphosphate/Sodium Phosphate (Fleets Adult) 1 dose [place] DAILYP PRN PRN Reason: Constipation Sodium Chloride (Saline Flush) 10 ml IV Q8 [facility] Last Admin: 01/06/19 06:09 Dose: 10 ml Documented by: Spironolactone (Aldactone) 50 mg PO BID [facility] Last Admin: 01/06/19 09:09 Dose: Not Given Documented by: Venlafaxine HCl (Effexor Xr) 150 mg PO DAILY [facility] Last Admin: 01/06/19 09:06 Dose: 150 mg Documented by: Medical - PN: A/P - Time Spent With Patient Total time spent is greater than 50% in coordination of care (as documented) at patient's floor/unit and/or counseling patient: - Narrative A/P Narrative: A: *Complicated Escherichia coli UTI: failed outpatient treatment. *Recurrent falls, mechanical from motorized scooter -no reported syncope -Echocardiogram unremarkable, no abnormal tele rhythms. *LLE infected hematoma/cellulitis: -MRI left lower extremity shows hematoma. *Recent left supracondylar humerus fracture:currently on cast/sling. *Significant self-care deficits/generalized deconditioning and weakness. *DM II: *Anemia, chronic *CAD: beta santiago statin/spironolactone *Anticoagulation on rivaroxaban: currently held for surgery *Neuropathy: gabapentin/cyclobenzaprine *Anxiety: on venlafaxine *Morbid obesity Plan: -cephalosporin -Operative intervention today for Arm -Orthopedics on board -Review postop, likely restart anticoagulation 24 hours - ontinue basal prandial insulin/Farxiga -Aggressive PT OT/nutritional support -SNF placement -ppx: Anticoagulation held for lower extremity hematoma, likely resume in 24 hours Medical - PN: Qual - VTE Deep Vein Thrombosis/Pulmonary Embolism Present on Admission: No
[2019-01-06] MEDS ORDERED: FLUMAZENIL 0.1 MG/ML ML IV PRN ×2 (13:17→14:56)
[2019-01-06] MEDS ORDERED: ACETAMINOPHEN 1,000 MG/100 ML BOTTLE IV ONE (13:17)
[2019-01-06] MEDS ORDERED: IPRATROPIUM/ALBUTEROL 3 ML AMPUL.NEB NEB PRN ×2 (13:17→14:56)
[2019-01-06] MEDS ORDERED: ONDANSETRON 4 MG/2 ML VIAL IV PRN ×3 (13:17→14:56)
[2019-01-06] MEDS ORDERED: MEPERIDINE 25 MG/ML SYRINGE IV PRN ×2 (13:17→14:56)
[2019-01-06] MEDS ORDERED: NALOXONE HCL 0.4 MG/ML VIAL IV PRN ×2 (13:17→14:56)
[2019-01-06] MEDS ORDERED: LACTATED RINGERS 250 ML IV PRN ×2 (13:17→14:56)
[2019-01-06] MEDS ORDERED: fentaNYL 100 MCG/2 ML VIAL IV PRN ×2 (13:17→14:56)
[2019-01-06] MEDS ORDERED: BENZOCAINE/MENTHOL 1 LOZENGE PO PRN ×2 (13:17→14:56)
[2019-01-06] MEDS ORDERED: LACTATED RINGERS 1,000 ML IV SCH ×2 (13:30→14:56)
--- NOTE | 2019-01-06 13:55 | Brief Operative Note ---
Date of procedure: 01/06/19 Pre-op diagnosis: left supracondylar humerus fx, closed Post-op diagnosis: same Procedure: Closed reduction and percutaneous pinning of left supracondylar humerus fracture Grafts/Implants: No (0.054 K-wire x2) Anesthesia: GETA Findings: reducible fracture Complications: none Surgeon: Yuri Francis Movement Assembly Final Inspector: Tee Bliss Estimated blood loss (cc): 1 Tourniquet Time (Minutes): 0 Specimens Removed/Pathology: none sent Condition: stable Disposition: PACU
--- NOTE | 2019-01-06 14:43 | XRay Report ---
HISTORY: Postop internal fixation of a supracondylar fracture FINDINGS: There is good alignment following open reduction internal fixation of the supracondylar fracture in the distal humerus. There are two crossing pins extending through both medial lateral distal margins of the humerus into the distal shaft. There is no angulation. The elbow joint space appears normal in width and alignment. IMPRESSION: Good alignment following open reduction internal fixation of the supracondylar fracture in the left elbow Interpreted and Authenticated by: Jeramie Polo 01/06/19
[2019-01-06] MEDS ORDERED: LORazepam 1 MG TABLET PO PRN (14:56)
[2019-01-06] MEDS ORDERED: ACETAMINOPHEN 1,000 MG/100 ML BOTTLE IV PRN (14:56)
[2019-01-06] MEDS ORDERED: MAGNESIUM SULFATE 2 GM/50 ML BAG IV PRN (14:56)
[2019-01-06] MEDS ORDERED: POLYETHYLENE GLYCOL 3350 17 GM PACKET PO PRN (14:56)
[2019-01-06] MEDS ORDERED: POTASSIUM CHLORIDE 20 MEQ PACKET PO PRN (14:56)
[2019-01-06] MEDS ORDERED: DEXTROSE 31 GM ORAL.SUSP PO PRN (14:56)
[2019-01-06] MEDS ORDERED: DEXTROSE 50% 50 ML VIAL IV PRN (14:56)
[2019-01-06] MEDS ORDERED: ACETAMINOPHEN 325 MG TABLET PO PRN (14:56)
[2019-01-06] MEDS ORDERED: FLEETS ADULT ENEMA PR PRN (14:56)
[2019-01-06] MEDS ORDERED: MAGNESIUM HYDROXIDE 30 ML ORAL.SUSP PO PRN (14:56)
--- NOTE | 2019-01-06 19:14 | Operative Note ---
DATE OF OPERATION: 01/06/2019 PREOPERATIVE DIAGNOSIS: Left closed supracondylar humerus fracture, displaced. POSTOPERATIVE DIAGNOSIS: Left closed supracondylar humerus fracture, displaced. PROCEDURE PERFORMED: Closed reduction and percutaneous pinning of left supracondylar humerus fracture procedure. SURGEON: Yuri Francis MD COVER CREASER: Tee Bliss PA-C. Reason for CIELO utilization is for help with positioning and help with reduction and holding the reduction, which appeared to be vital in completing the case in a safe and efficient fashion. ANESTHESIA: General. IV FLUIDS: 500 mL lactated ringer. ESTIMATED BLOOD LOSS: Minimal. TOURNIQUET TIME: Not applicable. ANTIBIOTICS: 3 grams Ancef. IMPLANTS: Two 0.054 K-wires. INTRAOPERATIVE COMPLICATIONS: None apparent. PATHOLOGY TO LAB: None. INDICATIONS: The patient is a 53-year-old female who is typically wheelchair bound, who approximately a week ago was transferring from a wheelchair when she fell resulting in injury to her left elbow. At that time she was seen in the emergency department, splinted and consulted Orthopedics who subsequently advised for operative fixation, but she is unable to follow up with her appointment as she had fallen again and admitted to the hospital here. Orthopedics was again consulted and I was ruby on rails developer; thus discussed with the prior orthopedic surgeon as the wound care surgeon was taking the patient to the OR today for hematoma evacuation and debridement. We discussed that it would be beneficial for the procedure to occur in conjunction with each other. Given time availability agreed to proceed with performing surgery. I discussed the case with the patient, my treatment operative plans and the risk of the procedure. She did agree with the plan. DESCRIPTION OF PROCEDURE: The patient was met in the preoperative area. Site was verified and marked with the patient's input. The patient was taken to the operating room where she underwent successful endotracheal anesthesia and then her left lower extremity was prepped and draped for procedure performed by a separate surgeon. This was completed by him; the room was changed over and cleaned. The patient's left upper extremity had a well-padded tourniquet placed about the proximal arm and was then prepped and draped in the usual sterile fashion after washing the arm with Hibiclens. The sterile prep was ChloraPrep. A surgical timeout was performed to verify patient identity, correct procedure being performed and extremity to be operated on it, and everybody was in agreement. At this point, utilizing a small C-arm, I was able to significantly improve the overall alignment of the distal supracondylar humerus fracture which appeared to be extraarticular in nature. The coronal and obliques looked near anatomic. There was probably a millimeter or 2 step but there is a bit of rotational angulation to the fracture which I unable to correct but given her overall health status and functional status I thought that this was in her best interest to avoid a large open approach as patient has significant comorbidities and the reduction coronal and sagittal was well within acceptable limits. At this point, I placed two K-wires, one medial and one lateral up the medial and lateral column. I was happy with the overall fixation. The medial pin was placed under direct visualization with creating a skin incision, bluntly dissecting down to the medial epicondyle and placed a pin with the elbow in a semi-extended position to reduce the potential injury to the ulnar nerve. At this point, the pins had been placed. The wound was copiously irrigated and a small closure about the medial incision with 3-0 nylon. The pins were cut short, bent and Xeroform was placed around the base of the pins. Webril and fluffs was placed between the pins and the skin in order to protect them and then wrapped with Webril and then placed into a fiberglass long arm cast with the wrist being free and back in her sling. The patient was awoken from anesthesia, transferred to PACU in stable condition. POSTOPERATIVE PLAN: The patient will return to the floor where she will be admitted for other comorbidities. With regards to Orthopedics, the patient will be discharged with followup in 1 to 2 weeks for wound check and suture removal. DLKathy:bela Job ID: [id number] Doc ID: [id number] Yuri MEZA
[2019-01-06] MEDS: SENNOSIDES/DOCUSATE SODIUM 1 TAB TABLET PO SCH (20:17)
[2019-01-06] MEDS: ARIPIPRAZOLE 20 MG TABLET PO SCH (20:18)
[2019-01-06] MEDS: ATORVASTATIN 20 MG TABLET PO SCH (20:18)
[2019-01-07] MEDS: HYDROmorphone 2 MG/ML VIAL IV PRN ×3 (04:05→13:34)
[2019-01-07] MEDS: 0.9 % SODIUM CHLORIDE 10 ML SYRINGE IV SCH ×3 (04:06→20:33)
[2019-01-07 06:00] LABS: Mean Cell Volume 92.3 fL (80.0-100.0); Mean Corpuscular HGB Conc 32.4 g/dL (31.0-36.0); Platelet Count 249 K/mcL (140-440); RBC 2.96 M/mcL (4.00-5.20)
[2019-01-07 06:34] LABS: ALT/SGPT 31 U/l (0-40); Albumin 3.2 gm/dL (3.2-5.2); Alkaline Phosphatase 93 U/L (39-117); Bilirubin,Direct < 0.2 mg/dL (0.0-0.3); Blood Urea Nitrogen 21 mg/dl (6-20); Gamma Glutamyl Transpeptidase 77 U/L (5-36); Uric Acid 6.6 mg/dL (2.5-8.0)
--- NOTE | 2019-01-07 07:12 | Internal Med Progress Note ---
Medical - PN: Subj Patient information: Note initiated : 01/07/19 at 7:08 am Service Date, if different from initiated Date: [] Patient: Jessica Gaytan a 53 y/o F admitted on 01/04/19 for Decreased LOC, Spastic movement in arms. Chief Complaint: [] Interval history: Ms. Gaytan is a 53 year old F with a known history of hypertension/obesity and coronary artery disease who presents to the ER with multiple complaints i ncluding weakness lethargic malaise, gradual deterioration in functional status after sustaining a fall a few days ago off her wheelchair that resulted in left supracondylar fracture humerus along with injury to the left lower extremity resulting in hematoma. Patient was placed in a cast and sling and has been at [place] unable to care for self. She has experienced a gradual decline in health and has been battling with recurrent UTIs and has been recently on antibiotics. She however denies expressing fever, diarrhea, dysuria, bloody stool. She further denies headache photophobia but has gradually gotten increasingly confused. Initial workup in the ER was consistent with recurrent UTI with pyuria/elevated lactate and left lower extremity hematoma/cellulitis. Patient was started on a ntibiotics and hospitalist service was consulted During the time of evaluation patient is fatigued and lethargic and was able to answer some questions. She denies lightheadedness, dizziness, seizure episode. She attributes the fall with her motorized chair toppling over the Rug 01/05-patient clinically improved. Wound care on board. MRI lower extremity pending to rule out fracture/osteomyelitis. Possible drainage in 24 hours with wound care. Case discussed with orthopedics for left supracondylar fracture evaluation. Ongoing pain management. Echocardiogram pending. No overnight fever chills nausea vomiting. 01/06- patient doing well. Will be undergoing hematoma evacuation/left arm fracture repair. Surgery and orthopedics on board. No overnight events. No concerns or staff. Adequate pain management. Currently nothing by mouth. Will review postop 01/07 Slept all right. No new complaints. Does have pain in the fractured arm relatively controlled. Had surgical repair yesterday of her arm as well as debridement of the left leg hematoma yesterday. Review of Systems: denies headache/fever/chills/nausea/vomiting/chest or abdominal pain/cough/dyspnea/diarrhea. Otherwise see above. - Constitutional Vitals: Vital Signs Temp Pulse Resp BP Pulse Ox 97.6 F 84 16 108/60 95 01/07/19 03:08 01/07/19 03:08 01/07/19 03:08 01/07/19 03:08 01/07/19 03:08 Period Temp Pulse Resp BP Sys/Street Pulse Ox Last 24 Hr 97.1 F-98.6 F 78-92 10-18 101-170/30-88 89-100 Intake and Output 01/06/19 01/07/19 01/07/19 21:59 05:59 13:59 Intake Total 1200 790 Output Total 700 800 Balance 500 -10 Weight 117.934 kg Intake & Output: Intake & Output 01/06/19 01/07/19 01/07/19 21:59 05:59 13:59 Intake Total 1200 790 Output Total 700 800 Balance 500 -10 Weight 117.934 kg Intake: IV 100 Oral 790 IV - Manual Only 1100 Output: Void Amount 700 800 Other: Urine Appearance Sediment Urine Color Light Ivelisse Dark Yellow Urine Odor Strong Exam: General: Alert, Awake, No acute Distress Eyes/N/T: EOMI, Head/Neck: neck supple, bruising of the face including right brow suture CV: RRR, No murmurs Pulm: Clear b/l, no wheezing/rhonchi/rales Abd: soft, nontender, +BS x4 Ext: no clubbing/cyanosis. Left left arm in sling, left leg dressing in place Neuro: Alert, no focal deficits, moves all extremities, Skin: warm/dry Medical - PN: Obj Da - Labs CBC & Chem 7: 01/07/19 04:02 01/07/19 04:02 Labs: Abnormal Lab Results 01/07/19 01/07/19 01/06/19 04:02 04:02 05:45 RBC 2.96 L Hgb 8.8 L Hct 27.3 L MPV Gran % Lymph % (Auto) Lymph # (Auto) Seg Neutrophils % Lymphocytes % POC PT 16.4 H POC INR 1.4 H VBG Lactic Acid BUN 21 H Glucose 109 H GGT 77 H AST Lactate Dehydrogenase Albumin Albumin/Globulin Ratio Triglycerides 158 H Urine Glucose (UA) Urine Occult Blood Ur Leukocyte Esterase Urine RBC Urine WBC Urine Bacteria Urine Yeast (Budding) 01/06/19 01/06/19 01/05/19 04:00 03:59 04:18 RBC 3.11 L Hgb 9.2 L Hct 28.7 L MPV 7.2 L Gran % Lymph % (Auto) Lymph # (Auto) Seg Neutrophils % 86 H Lymphocytes % 10 L POC PT POC INR VBG Lactic Acid BUN Glucose 67 L GGT AST Lactate Dehydrogenase 273 H Albumin 2.9 L 3.0 L Albumin/Globulin Ratio 0.8 L Triglycerides 179 H 176 H Urine Glucose (UA) Urine Occult Blood Ur Leukocyte Esterase Urine RBC Urine WBC Urine Bacteria Urine Yeast (Budding) 01/05/19 01/04/19 01/04/19 04:18 10:34 10:34 RBC 3.06 L 3.49 L Hgb 8.9 L 10.3 L Hct 27.8 L 31.5 L MPV 7.2 L 7.2 L Gran % 79.8 H Lymph % (Auto) 11.3 L Lymph # (Auto) 1.0 L Seg Neutrophils % Lymphocytes % POC PT POC INR VBG Lactic Acid 3.5 H BUN Glucose GGT AST Lactate Dehydrogenase Albumin Albumin/Globulin Ratio Triglycerides Urine Glucose (UA) Urine Occult Blood Ur Leukocyte Esterase Urine RBC Urine WBC Urine Bacteria Urine Yeast (Budding) 01/04/19 01/04/19 01/04/19 10:33 10:26 10:23 RBC Hgb Hct MPV Gran % Lymph % (Auto) Lymph # (Auto) Seg Neutrophils % Lymphocytes % POC PT 33.2 H POC INR 2.9 H VBG Lactic Acid BUN 23 H Glucose GGT AST 49 H Lactate Dehydrogenase Albumin Albumin/Globulin Ratio 0.9 L Triglycerides Urine Glucose (UA) >=500 A Urine Occult Blood >=1.0 A Ur Leukocyte Esterase 500 A Urine RBC > 182 H Urine WBC > 182 H Urine Bacteria Few A Urine Yeast (Budding) Many A Meds: Medications Acetaminophen (Tylenol) 650 mg PO Q4-6HP PRN PRN Reason: PAIN/FEVER > 101 Last Admin: 01/07/19 02:25 Dose: 650 mg Documented by: Hydrocodone Bitart/Acetaminophen (Jarreau 10/325mg) 1 tab PO QIDP PRN PRN Reason: Pain Last Admin: 01/06/19 23:08 Dose: 1 tab Documented by: Atorvastatin Calcium (Lipitor) 10 mg PO HS TODD Last Admin: 01/06/19 20:18 Dose: 10 mg Documented by: Bupropion HCl (Wellbutrin Xl) 450 mg PO DAILY [facility] Cyanocobalamin (Vitamin B-12) 2,500 mcg PO DAILY [facility] Dextrose (Dextrose 50%) 0 ml IV UD PRN PRN Reason: Hypoglycemia Diagnostic Test (Pha) (Accu-Chek) 1 each FS ACHS [facility] Last Admin: 01/06/19 20:48 Dose: 1 each Documented by: Docusate Sodium (Colace) 100 mg PO BID [facility] Last Admin: 01/06/19 20:17 Dose: 100 mg Documented by: Famotidine (Pepcid) 20 mg PO BIDAC [facility] Last Admin: 01/06/19 17:23 Dose: 20 mg Documented by: Furosemide (Lasix) 20 mg PO BID [facility] Last Admin: 01/06/19 20:17 Dose: 20 mg Documented by: Gabapentin (Neurontin) 900 mg PO QID [facility] Last Admin: 01/06/19 20:17 Dose: 900 mg Documented by: Glucose (Insta-Glucose) 15 gm PO PRN PRN PRN Reason: Hypoglycemia Hydromorphone HCl (Dilaudid) 0.5 mg IV Q4HP PRN PRN Reason: PAIN LEVEL > 6 Last Admin: 01/07/19 04:05 Dose: 0.5 mg Documented by: Ceftriaxone Sodium 2 gm/ (Dextrose) 50 mls @ 100 mls/hr IV DAILY [facility]; Protocol Magnesium Sulfate (Magnesium Sulfate) 2 gm in 50 mls @ 50 mls/hr IV UD PRN PRN Reason: MG = or < 1.7 Acetaminophen (Ofirmev) 1,000 mg in 100 mls @ 200 mls/hr IV Q6HP PRN PRN Reason: PAIN/FEVER > 101 Insulin Glargine (Lantus) 20 unit SQ BID [facility] Last Admin: 01/06/19 20:54 Dose: 20 units Documented by: Insulin Human Lispro (Humalog) 0 unit SQ [facility]; Protocol Last Admin: 01/06/19 20:54 Dose: 4 units Documented by: Loratadine (Claritin) 10 mg PO DAILY [facility] Lorazepam (Ativan) 1 mg PO Q4HP PRN PRN Reason: Anxiety Magnesium Hydroxide (Milk Of Magnesia) 30 ml PO HSP PRN PRN Reason: Constipation Metformin HCl (Glucophage) 1,000 mg PO BIDCC [facility] Last Admin: 01/06/19 17:23 Dose: 1,000 mg Documented by: Metoprolol Succinate (Toprol Xl) 100 mg PO DAILY [facility] Morphine Sulfate (Ms Contin) 15 mg PO TID [facility] Last Admin: 01/06/19 20:19 Dose: 15 mg Documented by: Nitrofurantoin Macrocrystals (Macrobid) 100 mg PO BID [facility] Last Admin: 01/06/19 20:17 Dose: 100 mg Documented by: Ondansetron HCl (Zofran) 4 mg IV Q4-6HP PRN PRN Reason: Nausea And Vomiting Dapagliflozin Propanediol [Farxiga ] 10 Mg Tab 1 dose PO DAILY [facility] Polyethylene Glycol (Miralax) 17 gm PO BIDP PRN PRN Reason: Constipation Potassium Chloride (Klor-Con) 40 meq PO DAILYP PRN PRN Reason: K+ < 3.5 Senna/Docusate Sodium (Senna Plus Tablet) 1 tab PO HS [facility] Last Admin: 01/06/19 20:17 Dose: 1 tab Documented by: Sitagliptin Phosphate (Januvia) 100 mg PO DAILY [facility] Sodium Biphosphate/Sodium Phosphate (Fleets Adult) 1 dose AR DAILYP PRN PRN Reason: Constipation Sodium Chloride (Saline Flush) 10 ml IV Q8 [facility] Last Admin: 01/07/19 04:06 Dose: 10 ml Documented by: Spironolactone (Aldactone) 50 mg PO BID [facility] Last Admin: 01/06/19 20:17 Dose: 50 mg Documented by: Venlafaxine HCl (Effexor Xr) 150 mg PO DAILY [facility] Medical - PN: A/P - Time Spent With Patient Total time spent is greater than 50% in coordination of care (as documented) at patient's floor/unit and/or counseling patient: - Narrative A/P Narrative: A: *Complicated E.coli UTI: failed outpatient treatment -resistant to quinolones/nitrofurantoin/bactrim/ampicillin *Recurrent falls, mechanical from motorized scooter -no reported syncope -Echocardiogram unremarkable, no abnormal tele rhythms. *LLE infected hematoma/cellulitis: s/p I&D (01/06) -MRI left lower extremity shows hematoma. *Recent left supracondylar humerus fracture: s/p ORIF (01/06) by Dr. Francis *Significant self-care deficits/generalized deconditioning and weakness. *DM II: *Anemia, chronic *CAD: beta santiago statin/spironolactone *PAF: on BB/Rivaroxaban *Neuropathy: gabapentin/cyclobenzaprine *Anxiety: on venlafaxine *Morbid obesity Plan: -rocephin -wound care following -restart anticoagulation in AM -continue basal prandial insulin/Dapagliflozin -cont BB/Statin/Aldactone -f/u with Ortho outpt -Aggressive PT OT/nutritional support -SNF placement -ppx: Anticoagulation held for lower extremity hematoma, restart in AM Medical - PN: Qual - VTE Deep Vein Thrombosis/Pulmonary Embolism Present on Admission: No
--- NOTE | 2019-01-07 07:47 | Orthopedic Progress Note ---
Subjective Patient information: Note initiated : 01/07/19 at 7:44 am Service Date, if different from initiated Date: [] Patient: Jessica Gaytan 53 y/o F admitted on 01/04/19 for Decreased LOC, Spastic movement in arms. Chief Complaint: [] Principal diagnosis: Left distal humerus fracture Interval history: No change overnight. Objective Vital signs: Vital Signs Temp Pulse Pulse Resp BP BP BP 01/07/19 03:08 97.6 F 84 16 108/60 01/07/19 00:00 97.7 F 80 16 105/54 01/06/19 19:43 97.6 F 80 18 101/61 01/06/19 16:30 80 170/85 01/06/19 16:16 80 133/88 01/06/19 15:59 86 128/79 01/06/19 15:48 97.1 F 78 16 115/59 01/06/19 15:46 79 121/85 01/06/19 15:39 97.1 F 78 16 01/06/19 15:29 80 114/65 01/06/19 14:26 98.2 F 82 16 132/72 113/60 01/06/19 14:10 98.1 F 83 14 131/78 113/60 01/06/19 14:00 82 16 130/75 113/60 01/06/19 13:55 79 11 L 132/68 113/60 01/06/19 13:50 98.1 F 81 81 10 L 117/71 01/06/19 08:00 98.6 F 92 H 14 122/30 Pulse Ox 01/07/19 03:08 95 01/07/19 00:00 96 01/06/19 19:43 97 01/06/19 16:30 99 01/06/19 16:16 98 01/06/19 15:59 96 01/06/19 15:48 89 L 01/06/19 15:46 96 01/06/19 15:39 01/06/19 15:29 98 01/06/19 14:26 98 01/06/19 14:10 98 01/06/19 14:00 98 01/06/19 13:55 100 01/06/19 13:50 100 01/06/19 08:00 98 Intake and Output 01/06/19 01/07/19 01/07/19 21:59 05:59 13:59 Intake Total 1200 790 Output Total 700 800 Balance 500 -10 Intake: IV 100 Oral 790 IV - Manual Only 1100 Output: Void Amount 700 800 Other: Urine Appearance Sediment Urine Color Light Ivelisse Dark Yellow Urine Odor Strong Weight 260 lb Intake & Output: Intake & Output 01/06/19 01/07/19 01/07/19 21:59 05:59 13:59 Intake Total 1200 790 Output Total 700 800 Balance 500 -10 Weight 260 lb Intake: IV 100 Oral 790 IV - Manual Only 1100 Output: Void Amount 700 800 Other: Urine Appearance Sediment Urine Color Light Ivelisse Dark Yellow Urine Odor Strong Dressing: Yes clean Weight bearing status: non Range of motion: hand- can make a flat hand and near complete closed fist. Neurological exam IM: Yes neurovascular intact - Labs CBC & BMP: 01/07/19 04:02 01/07/19 04:02 Labs: Orthopedic Labs 01/06/19 01/04/19 05:45 10:23 POC PT 16.4 H 33.2 H POC INR 1.4 H 2.9 H 01/07/19 01/06/19 01/05/19 04:02 04:00 04:18 Hgb 8.8 L 9.2 L 8.9 L Hct 27.3 L 28.7 L 27.8 L 01/04/19 10:34 Hgb 10.3 L Hct 31.5 L Assessment and Plan (1) Left elbow fracture Status: Acute - Narrative A/P Narrative: POD 1 s/p CRPP left supracondylar humerus fracture -- non weight bearing with sling for LUE -- work on making a flat hand and closed fist -- will need follow up next thursday or with Shanon Bliss for cast change.
[2019-01-07] MEDS: INSULIN LISPRO 1 UNIT/0.01 ML UNIT SQ SCH ×4 (07:49→20:35)
[2019-01-07 07:57] LABS: Lymphocytes % 12 % (15-49); Monocytes % (Manual) 4 % (1-12); Platelet Estimate NORMAL (NORMAL); RBC Morphology ABNORM (NORMAL); Segmented Neutrophils % 84 % (38-78)
[2019-01-07] MEDS: INSULIN GLARGINE, HUMAN 1 UNIT/0.01 ML SQ SCH ×2 (08:25→20:45)
[2019-01-07] MEDS: CYANOCOBALAMIN (VITAMIN B-12) 500 MCG TABLET PO SCH (08:26)
[2019-01-07] MEDS: GABAPENTIN 300 MG CAPSULE PO SCH ×4 (08:27→20:29)
[2019-01-07] MEDS: buPROPion 150 MG TAB.XL.24H PO SCH (08:27)
[2019-01-07] MEDS: METOPROLOL SUCCINATE 50 MG TAB.XL.24H PO SCH (08:28)
[2019-01-07] MEDS: SPIRONOLACTONE 25 MG TABLET PO SCH ×2 (08:28→20:31)
[2019-01-07] MEDS: VENLAFAXINE 150 MG CAP.XL.24H PO SCH (08:29)
[2019-01-07] MEDS: DOCUSATE SODIUM 100 MG CAPSULE PO SCH ×2 (08:29→20:29)
[2019-01-07] MEDS: sitaGLIPtin 100 MG TABLET PO SCH (08:29)
[2019-01-07] MEDS: metFORMIN 500 MG TABLET PO SCH ×2 (08:29→17:04)
[2019-01-07] MEDS: morphine 15 MG TAB.SR.12H PO SCH ×3 (08:29→20:30)
[2019-01-07] MEDS: FAMOTIDINE 20 MG TABLET PO SCH ×2 (08:30→17:04)
[2019-01-07] MEDS: FUROSEMIDE 20 MG TABLET PO SCH ×2 (08:30→20:30)
[2019-01-07] MEDS: NITROFURANTOIN SR 100 MG CAPSULE PO SCH ×2 (08:31→20:29)
[2019-01-07] MEDS: Dapagliflozin Propanediol [Farxiga] 10 mg Tab PO SCH (08:42)
[2019-01-07] MEDS: cefTRIAXone 2 GM in DEXTROSE 5% IN WATER 50 ML IV SCH (08:44)
[2019-01-07] MEDS: LORATADINE 10 MG TABLET PO SCH (09:03)
--- NOTE | 2019-01-07 09:03 | Operative Note ---
DATE OF OPERATION: 01/06/2019 PREOPERATIVE DIAGNOSIS: History of trauma with a subcutaneous hematoma left mid leg. No evidence of compartment syndrome. POSTOPERATIVE DIAGNOSIS: History of trauma with a subcutaneous hematoma left mid leg. No evidence of compartment syndrome. This hematoma had already started draining last evening. OPERATION: Evacuation excision of hematoma clots or nonviable skin. Open packing. FINDINGS: Partially encapsulated subcutaneous hematoma involving skin, subcutaneous dermis and underlying adipose tissue. ESTIMATED BLOOD LOSS: 5 mL SPECIMENS OBTAINED: Core biopsy and cultures. PROCEDURE NOTE: After obtaining informed consent, patient was taken to the OR. A timeout was called. She was anesthetized uneventfully in supine position. Intravenous antibiotics were on board. Preoperative photograph was taken. Left lower extremity was widely cleaned, prepped and draped in the standard fashion. First, the nonviable skin and viable skin area was carefully opened with Metzenbaum scissors. This was carried out in steps. The nonviable skin was completely excised and digital evacuation of hematoma was carried out. Copious irrigation of subcutaneous tissues was carried out multiple times. The gelatinous clots were evacuated. Approximately 30 mL of clots were cleaned. Underlying muscle fascia appears to be intact and compressed. No fasciotomy needed. Samples were taken for pathology and cultures. Wound was packed open with Xeroform gauze, 4 x 4 gauze, Kerlix bandage, Coban and RACHELLE bandages, respectively. The patient was kept anesthetized on the table. Count of swabs, instruments and needles following evacuation of hematoma were correct. Dr. Francis, Orthopedic Surgeon will be working with this patient for treatment of left supracondylar fracture of humerus. VD:bela Job ID: [id number] Doc ID: [id number] Burke Carvajal MD
--- NOTE | 2019-01-07 12:05 | General Surgery Progress Note ---
Subjective Patient reports: other (Oozing from Left leg dressing. Needed reinforcement x 1 during night. ) Narrative: Note initiated : 01/07/19 at 12:03 pm Service Date, if different from initiated Date: [] Patient: Jessica Gaytan 53 y/o F admitted on 01/04/19 for Decreased LOC, Spastic movement in arms. Chief Complaint: [] Objective Temp Pulse Resp BP Pulse Ox 97.9 F 81 18 105/58 98 01/07/19 11:44 01/07/19 11:44 01/07/19 11:44 01/07/19 11:44 01/07/19 11:44 AVSS. No changes JUAN JOSE. Reviewed Orthopedic f/U note Dr. Francis Left leg dressing removed and wound examined. NO ACTIVE BLEEDING, NO residual clots. Neurovascular intact LLE. - Additional Data Intake & Output - Last 24 hours: Intake & Output 01/05/19 01/06/19 01/07/19 01/08/19 05:59 05:59 05:59 05:59 Intake Total 1340 1810 2140 50 Output Total 2000 3250 2400 Balance -660 -1440 -260 50 Weight 260 lb 261 lb 260 lb - Labs 01/07/19 04:02 01/07/19 04:02 Diabetes panel 01/07/19 Range/Units 04:02 Sodium 142 (133-145) mmol/L Potassium 4.4 (3.3-5.1) mmol/L Chloride 102 (96-108) mmol/L Carbon Dioxide 24 (22-30) mmol/L BUN 21 H (6-20) mg/dl Creatinine 1.0 (0.6-1.1) mg/dl Glucose 109 H (70-105) mg/dL Calcium 8.9 (8.6-10.4) mg/dl AST 26 (0-37) U/l ALT 31 (0-40) U/l Alkaline Phosphatase 93 (39-117) U/L Total Protein 6.3 (5.9-8.4) gm/dL Albumin 3.2 (3.2-5.2) gm/dL Triglycerides 158 H (<150) mg/dl Calcium panel 01/07/19 Range/Units 04:02 Calcium 8.9 (8.6-10.4) mg/dl Phosphorus 3.8 (2.7-4.5) mg/dL Albumin 3.2 (3.2-5.2) gm/dL Pituitary panel 01/07/19 Range/Units 04:02 Sodium 142 (133-145) mmol/L Potassium 4.4 (3.3-5.1) mmol/L Chloride 102 (96-108) mmol/L Carbon Dioxide 24 (22-30) mmol/L BUN 21 H (6-20) mg/dl Creatinine 1.0 (0.6-1.1) mg/dl Glucose 109 H (70-105) mg/dL Calcium 8.9 (8.6-10.4) mg/dl Adrenal panel 01/07/19 Range/Units 04:02 Sodium 142 (133-145) mmol/L Potassium 4.4 (3.3-5.1) mmol/L Chloride 102 (96-108) mmol/L Carbon Dioxide 24 (22-30) mmol/L BUN 21 H (6-20) mg/dl Creatinine 1.0 (0.6-1.1) mg/dl Glucose 109 H (70-105) mg/dL Calcium 8.9 (8.6-10.4) mg/dl Total Bilirubin 0.4 (0.0-1.0) mg/dL AST 26 (0-37) U/l ALT 31 (0-40) U/l Alkaline Phosphatase 93 (39-117) U/L Total Protein 6.3 (5.9-8.4) gm/dL Albumin 3.2 (3.2-5.2) gm/dL Assessment and Plan (1) Traumatic hematoma of left lower leg Status: Acute Current Visit: Yes (2) Fall Status: Acute Current Visit: No (3) Laceration of head Status: Acute Current Visit: No (4) Left elbow fracture Status: Acute Current Visit: No (5) Urinary tract bacterial infections Status: Chronic Current Visit: No - Time Spent With Patient Total time spent is greater than 50% in coordination of care (as documented) at patient's floor/unit and/or counseling patient: Assessment: Satisfactory progress s/p Evacuation of blood clots and excision of necrotic skin over organized hematoma LEFT leg Microbiology results awaited. Plan: See wound care orders. 25 - 35 minutes
--- NOTE | 2019-01-07 14:57 | Surgical Pathology Report ---
HISTOLOGY SPECIMEN MICROSCOPIC DIAGNOSIS SKIN AND SOFT TISSUE, LEFT LEG, EXCISION: -- SKIN WITH SOFT TISSUE FIBRIN BLOOD CLOT COMPATIBLE WITH HEMATOMA. -- NO MALIGNANCY IDENTIFIED. (EBD:sln) PROCEDURAL IMPRESSION Hematoma. GROSS DESCRIPTION Received in formalin, labeled left leg hematoma tissue, are three fragments of sands-pink soft tissue with associated hemorrhage, 6.5 x 5.5 x 2.7 cm in aggregate. Two fragments have fibrous wall that is sheet-like and up to 0.3 cm thick. Preschool Teacher sections are submitted in two cassettes. (DMT:sln) Electronically Signed by: Itzel Daugherty M.D.
[2019-01-07] MEDS: HYDROcodone/APAP 10/325MG TABLET PO PRN (17:03)
[2019-01-07] MEDS: SENNOSIDES/DOCUSATE SODIUM 1 TAB TABLET PO SCH (20:29)
[2019-01-07] MEDS: ATORVASTATIN 20 MG TABLET PO SCH (20:30)
[2019-01-07] MEDS: ARIPIPRAZOLE 20 MG TABLET PO SCH (20:31)
[2019-01-08] MEDS: HYDROcodone/APAP 10/325MG TABLET PO PRN ×3 (02:59→23:42)
[2019-01-08] MEDS: HYDROmorphone 2 MG/ML VIAL IV PRN (04:06)
[2019-01-08] MEDS: 0.9 % SODIUM CHLORIDE 10 ML SYRINGE IV SCH ×3 (04:53→20:46)
[2019-01-08 05:59] LABS: Mean Cell Volume 92.8 fL (80.0-100.0); Platelet Count 275 K/mcL (140-440); RBC 2.98 M/mcL (4.00-5.20)
[2019-01-08 06:25] LABS: ALT/SGPT 26 U/l (0-40); Albumin 3.4 gm/dL (3.2-5.2); Alkaline Phosphatase 83 U/L (39-117); Bilirubin,Direct < 0.2 mg/dL (0.0-0.3); Blood Urea Nitrogen 20 mg/dl (6-20); Gamma Glutamyl Transpeptidase 62 U/L (5-36); Uric Acid 7.2 mg/dL (2.5-8.0)
[2019-01-08 06:38] LABS: Eosinophils % (Manual) 2 % (0-7); Lymphocytes % 26 % (15-49); Monocytes % (Manual) 3 % (1-12); Platelet Estimate NORMAL (NORMAL); RBC Morphology NORMAL (NORMAL); Segmented Neutrophils % 69 % (38-78)
[2019-01-08] MEDS: INSULIN LISPRO 1 UNIT/0.01 ML UNIT SQ SCH ×4 (06:56→20:46)
[2019-01-08] MEDS: FAMOTIDINE 20 MG TABLET PO SCH ×2 (07:09→17:10)
--- NOTE | 2019-01-08 07:10 | Internal Med Progress Note ---
Medical - PN: Subj Patient information: Note initiated : 01/08/19 at 7:08 am Service Date, if different from initiated Date: [] Patient: Jessica Gaytan a 53 y/o F admitted on 01/04/19 for Decreased LOC, Spastic movement in arms. Chief Complaint: [] Interval history: Ms. Gaytan is a 53 year old F with a known history of hypertension/obesity and coronary artery disease who presents to the ER with multiple complaints i ncluding weakness lethargic malaise, gradual deterioration in functional status after sustaining a fall a few days ago off her wheelchair that resulted in left supracondylar fracture humerus along with injury to the left lower extremity resulting in hematoma. Patient was placed in a cast and sling and has been at [place] unable to care for self. She has experienced a gradual decline in health and has been battling with recurrent UTIs and has been recently on antibiotics. She however denies expressing fever, diarrhea, dysuria, bloody stool. She further denies headache photophobia but has gradually gotten increasingly confused. Initial workup in the ER was consistent with recurrent UTI with pyuria/elevated lactate and left lower extremity hematoma/cellulitis. Patient was started on a ntibiotics and hospitalist service was consulted During the time of evaluation patient is fatigued and lethargic and was able to answer some questions. She denies lightheadedness, dizziness, seizure episode. She attributes the fall with her motorized chair toppling over the Rug 01/05-patient clinically improved. Wound care on board. MRI lower extremity pending to rule out fracture/osteomyelitis. Possible drainage in 24 hours with wound care. Case discussed with orthopedics for left supracondylar fracture evaluation. Ongoing pain management. Echocardiogram pending. No overnight fever chills nausea vomiting. 01/06- patient doing well. Will be undergoing hematoma evacuation/left arm fracture repair. Surgery and orthopedics on board. No overnight events. No concerns or staff. Adequate pain management. Currently nothing by mouth. Will review postop 01/07 Slept all right. No new complaints. Does have pain in the fractured arm relatively controlled. Had surgical repair yesterday of her arm as well as debridement of the left leg hematoma yesterday. 01/08 No issues overnight. Slept well and feeling better overall. Wound VAC in place. Wound care following. Likely placement on Thursday. Review of Systems: denies headache/fever/chills/nausea/vomiting/chest or abdominal pain/cough/dyspnea/diarrhea. Otherwise see above. - Constitutional Vitals: Vital Signs Temp Pulse Resp BP Pulse Ox 97.7 F 82 12 108/61 98 01/08/19 03:05 01/08/19 03:05 01/08/19 03:05 01/08/19 03:05 01/08/19 03:05 Period Temp Pulse Resp BP Sys/Street Pulse Ox Last 24 Hr 97 F-97.9 F 75-92 12-18 104-117/58-69 96-98 Intake and Output 01/07/19 01/08/19 01/08/19 21:59 05:59 13:59 Intake Total 630 280 Output Total 649 819 2908 Balance -170 -620 -1000 Weight 117.254 kg Intake & Output: Intake & Output 01/07/19 01/08/19 01/08/19 21:59 05:59 13:59 Intake Total 630 280 Output Total 804 616 3247 Balance -170 -620 -1000 Weight 117.254 kg Intake: Oral 630 280 Output: Void Amount 511 273 3456 Other: Meal Dinner Percent of Meal Consumed 75% Feeding Ability Independent Urine Appearance Clear Urine Color Light Ivelisse Tea Colored Urine Odor Normal Strong Exam: General: Alert, Awake, No acute Distress Eyes/N/T: EOMI, Head/Neck: neck supple, bruising of the face including right brow suture CV: RRR, No murmurs Pulm: Clear b/l, no wheezing/rhonchi/rales Abd: soft, nontender, +BS x4 Ext: no clubbing/cyanosis. Left left arm in sling, left leg wound VAC in place Neuro: Alert, no focal deficits, moves all extremities, Skin: warm/dry Medical - PN: Obj Da - Labs CBC & Chem 7: 01/08/19 04:12 01/08/19 04:12 Labs: Abnormal Lab Results 01/08/19 01/08/19 01/07/19 04:12 04:12 04:02 RBC 2.98 L Hgb 8.8 L Hct 27.6 L MPV 7.3 L Seg Neutrophils % Lymphocytes % RBC Morphology Polychromasia POC PT POC INR BUN 21 H Glucose 109 H GGT 62 H 77 H Lactate Dehydrogenase 269 H Albumin Albumin/Globulin Ratio Triglycerides 188 H 158 H 01/07/19 01/06/19 01/06/19 04:02 05:45 04:00 RBC 2.96 L 3.11 L Hgb 8.8 L 9.2 L Hct 27.3 L 28.7 L MPV 7.2 L Seg Neutrophils % 84 H 86 H Lymphocytes % 12 L 10 L RBC Morphology Abnorm A Polychromasia 1+ A POC PT 16.4 H POC INR 1.4 H BUN Glucose GGT Lactate Dehydrogenase Albumin Albumin/Globulin Ratio Triglycerides 01/06/19 03:59 RBC Hgb Hct MPV Seg Neutrophils % Lymphocytes % RBC Morphology Polychromasia POC PT POC INR BUN Glucose 67 L GGT Lactate Dehydrogenase 273 H Albumin 2.9 L Albumin/Globulin Ratio 0.8 L Triglycerides 179 H Meds: Medications Acetaminophen (Tylenol) 650 mg PO Q4-6HP PRN PRN Reason: PAIN/FEVER > 101 Last Admin: 01/07/19 02:25 Dose: 650 mg Documented by: Hydrocodone Bitart/Acetaminophen ([place] 10/325mg) 1 tab PO QIDP PRN PRN Reason: Pain Last Admin: 01/08/19 02:59 Dose: 1 tab Documented by: Atorvastatin Calcium (Lipitor) 10 mg PO HS [facility] Last Admin: 01/07/19 20:30 Dose: 10 mg Documented by: Bupropion HCl (Wellbutrin Xl) 450 mg PO DAILY [facility] Last Admin: 01/07/19 08:27 Dose: 450 mg Documented by: Cyanocobalamin (Vitamin B-12) 2,500 mcg PO DAILY [facility] Last Admin: 01/07/19 08:26 Dose: 2,500 mcg Documented by: Dextrose (Dextrose 50%) 0 ml IV UD PRN PRN Reason: Hypoglycemia Diagnostic Test (Pha) (Accu-Chek) 1 each FS ACHS [facility] Last Admin: 01/08/19 06:56 Dose: 1 each Documented by: Docusate Sodium (Colace) 100 mg PO BID [facility] Last Admin: 01/07/19 20:29 Dose: 100 mg Documented by: Famotidine (Pepcid) 20 mg PO BIDAC [facility] Last Admin: 01/07/19 17:04 Dose: 20 mg Documented by: Furosemide (Lasix) 20 mg PO BID [facility] Last Admin: 01/07/19 20:30 Dose: 20 mg Documented by: Gabapentin (Neurontin) 900 mg PO QID [facility] Last Admin: 01/07/19 20:29 Dose: 900 mg Documented by: Glucose (Insta-Glucose) 15 gm PO PRN PRN PRN Reason: Hypoglycemia Hydromorphone HCl (Dilaudid) 0.5 mg IV Q4HP PRN PRN Reason: PAIN LEVEL > 6 Last Admin: 01/08/19 04:06 Dose: 0.5 mg Documented by: Ceftriaxone Sodium 2 gm/ (Dextrose) 50 mls @ 100 mls/hr IV DAILY [facility]; Protocol Last Infusion: 01/07/19 09:20 Dose: Infused Documented by: Magnesium Sulfate (Magnesium Sulfate) 2 gm in 50 mls @ 50 mls/hr IV UD PRN PRN Reason: MG = or < 1.7 Acetaminophen (Ofirmev) 1,000 mg in 100 mls @ 200 mls/hr IV Q6HP PRN PRN Reason: PAIN/FEVER > 101 Insulin Glargine (Lantus) 20 unit SQ BID [facility] Last Admin: 01/07/19 20:45 Dose: 20 units Documented by: Insulin Human Lispro (Humalog) 0 unit SQ ACHS [facility]; Protocol Last Admin: 01/08/19 06:56 Dose: Not Given Documented by: Loratadine (Claritin) 10 mg PO DAILY [facility] Last Admin: 01/07/19 09:03 Dose: 10 mg Documented by: Lorazepam (Ativan) 1 mg PO Q4HP PRN PRN Reason: Anxiety Magnesium Hydroxide (Milk Of Magnesia) 30 ml PO HSP PRN PRN Reason: Constipation Last Admin: 01/07/19 08:44 Dose: 30 ml Documented by: [facility] Last Admin: 01/07/19 17:04 Dose: 1,000 mg Documented by: Metoprolol Succinate (Toprol Xl) 100 mg PO DAILY [facility] Last Admin: 01/07/19 08:28 Dose: 100 mg Documented by: Morphine Sulfate (Ms Contin) 15 mg PO TID [facility] Last Admin: 01/07/19 20:30 Dose: 15 mg Documented by: Nitrofurantoin Macrocrystals (Macrobid) 100 mg PO BID [facility] Last Admin: 01/07/19 20:29 Dose: 100 mg Documented by: Ondansetron HCl (Zofran) 4 mg IV Q4-6HP PRN PRN Reason: Nausea And Vomiting Dapagliflozin Propanediol [Farxiga ] 10 Mg Tab 1 dose PO DAILY [facility] Last Admin: 01/07/19 08:42 Dose: Not Given Documented by: Polyethylene Glycol (Miralax) 17 gm PO BIDP PRN PRN Reason: Constipation Potassium Chloride (Klor-Con) 40 meq PO DAILYP PRN PRN Reason: K+ < 3.5 Rivaroxaban (Xarelto) 20 mg PO QPMCC [facility] Senna/Docusate Sodium (Senna Plus Tablet) 1 tab PO HS [facility] Last Admin: 01/07/19 20:29 Dose: 1 tab Documented by: Sitagliptin Phosphate (Januvia) 100 mg PO DAILY [facility] Last Admin: 01/07/19 08:29 Dose: 100 mg Documented by: Sodium Biphosphate/Sodium Phosphate (Fleets Adult) 1 dose [place] DAILYP PRN PRN Reason: Constipation Sodium Chloride (Saline Flush) 10 ml IV Q8 [facility] Last Admin: 01/08/19 04:53 Dose: 10 ml Documented by: Spironolactone (Aldactone) 50 mg PO BID [facility] Last Admin: 01/07/19 20:31 Dose: 50 mg Documented by: Venlafaxine HCl (Effexor Xr) 150 mg PO DAILY [facility] Last Admin: 01/07/19 08:29 Dose: 150 mg Documented by: Medical - PN: A/P - Time Spent With Patient Total time spent is greater than 50% in coordination of care (as documented) at patient's floor/unit and/or counseling patient: - Narrative A/P Narrative: A: *Complicated (E.coli) UTI: failed outpatient treatment -resistant to quinolones/nitrofurantoin/bactrim/ampicillin *Recurrent falls, mechanical from motorized scooter -no reported syncope -Echocardiogram unremarkable, no abnormal tele rhythms. *LLE infected hematoma/cellulitis: s/p I&D (01/06), wound vac in place -MRI left lower extremity shows hematoma. *Recent left supracondylar humerus fracture: s/p ORIF (01/06) by Dr. Francis *Significant self-care deficits/generalized deconditioning and weakness. *DM II: *Anemia, chronic: stable *CAD: beta santiago statin/spironolactone *PAF: on BB/Rivaroxaban *Neuropathy: gabapentin/cyclobenzaprine *Anxiety: on venlafaxine *Morbid obesity Plan: -rocephin -wound care following -restart anticoagulation -continue basal prandial insulin/Dapagliflozin -cont BB/Statin/Aldactone -f/u with Ortho outpt -Aggressive PT OT/nutritional support -SNF placement -ppx: [facility] - PN: Qual - VTE Deep Vein Thrombosis/Pulmonary Embolism Present on Admission: No
[2019-01-08] MEDS: CYANOCOBALAMIN (VITAMIN B-12) 500 MCG TABLET PO SCH (09:22)
[2019-01-08] MEDS: metFORMIN 500 MG TABLET PO SCH ×2 (09:23→17:09)
[2019-01-08] MEDS: GABAPENTIN 300 MG CAPSULE PO SCH ×4 (09:24→20:45)
[2019-01-08] MEDS: VENLAFAXINE 150 MG CAP.XL.24H PO SCH (09:24)
[2019-01-08] MEDS: DOCUSATE SODIUM 100 MG CAPSULE PO SCH ×2 (09:25→20:45)
[2019-01-08] MEDS: buPROPion 150 MG TAB.XL.24H PO SCH (09:25)
[2019-01-08] MEDS: LORATADINE 10 MG TABLET PO SCH (09:26)
[2019-01-08] MEDS: FUROSEMIDE 20 MG TABLET PO SCH ×2 (09:26→20:45)
[2019-01-08] MEDS: morphine 15 MG TAB.SR.12H PO SCH ×3 (09:27→20:44)
[2019-01-08] MEDS: METOPROLOL SUCCINATE 50 MG TAB.XL.24H PO SCH (09:28)
[2019-01-08] MEDS: sitaGLIPtin 100 MG TABLET PO SCH (09:28)
[2019-01-08] MEDS: SPIRONOLACTONE 25 MG TABLET PO SCH ×2 (09:28→20:43)
[2019-01-08] MEDS: INSULIN GLARGINE, HUMAN 1 UNIT/0.01 ML SQ SCH ×2 (09:29→20:45)
[2019-01-08] MEDS: NITROFURANTOIN SR 100 MG CAPSULE PO SCH ×2 (09:29→20:43)
[2019-01-08] MEDS: Dapagliflozin Propanediol [Farxiga] 10 mg Tab PO SCH (09:30)
[2019-01-08] MEDS: cefTRIAXone 2 GM in DEXTROSE 5% IN WATER 50 ML IV SCH (09:31)
--- NOTE | 2019-01-08 16:20 | General Surgery Progress Note ---
Subjective Patient reports: other (Patient had uneventful night. Saw patient along with Brooke ALDRIDGE I/C ) Narrative: Note initiated : 01/08/19 at 4:18 pm Service Date, if different from initiated Date: [] Patient: Jessica Gaytan 53 y/o F admitted on 01/04/19 for Decreased LOC, Spastic movement in arms. Chief Complaint: [] Objective Temp Pulse Resp BP Pulse Ox 97.9 F 86 14 107/59 95 01/08/19 16:14 01/08/19 15:19 01/08/19 15:19 01/08/19 15:19 01/08/19 15:19 AVSS. No changes JUAN JOSE. Bruise Right orbit eyelids resolving. Left leg dressing CDI. VAC functioning. Minimal drainage. Left leg cultures NEG Urine C/S E Coli ON Ceftriaxone - Additional Data Intake & Output - Last 24 hours: Intake & Output 01/06/19 01/07/19 01/08/19 01/09/19 05:59 05:59 05:59 05:59 Intake Total 1810 2140 960 740 Output Total 3250 2400 1700 1700 Balance -1440 -260 -740 -960 Weight 261 lb 260 lb 258 lb 8 oz - Labs 01/08/19 04:12 01/08/19 04:12 Diabetes panel 01/08/19 Range/Units 04:12 Sodium 140 (133-145) mmol/L Potassium 4.3 (3.3-5.1) mmol/L Chloride 102 (96-108) mmol/L Carbon Dioxide 26 (22-30) mmol/L BUN 20 (6-20) mg/dl Creatinine 0.8 (0.6-1.1) mg/dl Glucose 75 (70-105) mg/dL Calcium 8.8 (8.6-10.4) mg/dl AST 23 (0-37) U/l ALT 26 (0-40) U/l Alkaline Phosphatase 83 (39-117) U/L Total Protein 6.7 (5.9-8.4) gm/dL Albumin 3.4 (3.2-5.2) gm/dL Triglycerides 188 H (<150) mg/dl Calcium panel 01/08/19 Range/Units 04:12 Calcium 8.8 (8.6-10.4) mg/dl Phosphorus 2.8 (2.7-4.5) mg/dL Albumin 3.4 (3.2-5.2) gm/dL Pituitary panel 01/08/19 Range/Units 04:12 Sodium 140 (133-145) mmol/L Potassium 4.3 (3.3-5.1) mmol/L Chloride 102 (96-108) mmol/L Carbon Dioxide 26 (22-30) mmol/L BUN 20 (6-20) mg/dl Creatinine 0.8 (0.6-1.1) mg/dl Glucose 75 (70-105) mg/dL Calcium 8.8 (8.6-10.4) mg/dl Adrenal panel 01/08/19 Range/Units 04:12 Sodium 140 (133-145) mmol/L Potassium 4.3 (3.3-5.1) mmol/L Chloride 102 (96-108) mmol/L Carbon Dioxide 26 (22-30) mmol/L BUN 20 (6-20) mg/dl Creatinine 0.8 (0.6-1.1) mg/dl Glucose 75 (70-105) mg/dL Calcium 8.8 (8.6-10.4) mg/dl Total Bilirubin 0.3 (0.0-1.0) mg/dL AST 23 (0-37) U/l ALT 26 (0-40) U/l Alkaline Phosphatase 83 (39-117) U/L Total Protein 6.7 (5.9-8.4) gm/dL Albumin 3.4 (3.2-5.2) gm/dL Assessment and Plan (1) Traumatic hematoma of left lower leg Status: Acute Current Visit: Yes (2) Fall Status: Acute Current Visit: No (3) Laceration of head Status: Acute Current Visit: No (4) Left elbow fracture Status: Acute Assessment and plan: Assessment: Satisfactory progress. Plan: Awaits placement. F/U at wound center after discharge Current Visit: No (5) Urinary tract bacterial infections Status: Chronic Current Visit: No - Time Spent With Patient Total time spent is greater than 50% in coordination of care (as documented) at patient's floor/unit and/or counseling patient:
[2019-01-08] MEDS: RIVAROXABAN 20 MG TABLET PO SCH (17:10)
[2019-01-08] MEDS: SENNOSIDES/DOCUSATE SODIUM 1 TAB TABLET PO SCH (20:43)
[2019-01-08] MEDS: ATORVASTATIN 20 MG TABLET PO SCH (20:44)
[2019-01-08] MEDS: ARIPIPRAZOLE 20 MG TABLET PO SCH (20:51)
[2019-01-09] MEDS: HYDROcodone/APAP 10/325MG TABLET PO PRN ×3 (05:29→18:37)
[2019-01-09] MEDS: 0.9 % SODIUM CHLORIDE 10 ML SYRINGE IV SCH ×3 (05:30→20:50)
--- NOTE | 2019-01-09 07:00 | Internal Med Progress Note ---
Medical - PN: Subj Patient information: Note initiated : 01/09/19 at 6:59 am Service Date, if different from initiated Date: [] Patient: Jessica Gaytan a 53 y/o F admitted on 01/04/19 for Decreased LOC, Spastic movement in arms. Chief Complaint: [] Interval history: Ms. Gaytan is a 53 year old F with a known history of hypertension/obesity and coronary artery disease who presents to the ER with multiple complaints i ncluding weakness lethargic malaise, gradual deterioration in functional status after sustaining a fall a few days ago off her wheelchair that resulted in left supracondylar fracture humerus along with injury to the left lower extremity resulting in hematoma. Patient was placed in a cast and sling and has been at [place] unable to care for self. She has experienced a gradual decline in health and has been battling with recurrent UTIs and has been recently on antibiotics. She however denies expressing fever, diarrhea, dysuria, bloody stool. She further denies headache photophobia but has gradually gotten increasingly confused. Initial workup in the ER was consistent with recurrent UTI with pyuria/elevated lactate and left lower extremity hematoma/cellulitis. Patient was started on a ntibiotics and hospitalist service was consulted During the time of evaluation patient is fatigued and lethargic and was able to answer some questions. She denies lightheadedness, dizziness, seizure episode. She attributes the fall with her motorized chair toppling over the Rug 01/05-patient clinically improved. Wound care on board. MRI lower extremity pending to rule out fracture/osteomyelitis. Possible drainage in 24 hours with wound care. Case discussed with orthopedics for left supracondylar fracture evaluation. Ongoing pain management. Echocardiogram pending. No overnight fever chills nausea vomiting. 01/06- patient doing well. Will be undergoing hematoma evacuation/left arm fracture repair. Surgery and orthopedics on board. No overnight events. No concerns or staff. Adequate pain management. Currently nothing by mouth. Will review postop 01/07 Slept all right. No new complaints. Does have pain in the fractured arm relatively controlled. Had surgical repair yesterday of her arm as well as debridement of the left leg hematoma yesterday. 01/08 No issues overnight. Slept well and feeling better overall. Wound VAC in place. Wound care following. Likely placement on Thursday. 01/09 Slept well. No new complaints. Excited to be discharged tomorrow. Wound VAC in place and site looks good Review of Systems: denies headache/fever/chills/nausea/vomiting/chest or abdominal pain/cough/dyspnea/diarrhea. Otherwise see above. - Constitutional Vitals: Vital Signs Temp Pulse Resp BP Pulse Ox 97.6 F 93 H 16 121/67 96 01/09/19 03:34 01/09/19 03:34 01/09/19 03:34 01/09/19 03:34 01/09/19 03:34 Period Temp Pulse Resp BP Sys/Street Pulse Ox Last 24 Hr 97.6 F-97.9 F 85-93 14-16 107-121/59-73 95-97 Intake and Output 01/08/19 01/09/19 01/09/19 21:59 05:59 13:59 Intake Total 590 1050 Output Total 1500 Balance 590 -450 Weight 117.48 kg Intake & Output: Intake & Output 01/08/19 01/09/19 01/09/19 21:59 05:59 13:59 Intake Total 590 1050 Output Total 1500 Balance 590 -450 Weight 117.48 kg Intake: Oral 590 1050 Output: Void Amount 1500 Other: Meal Dinner salad Percent of Meal Consumed 100% 50% Feeding Ability Independent Assist with Tray Set Up Urine Appearance Clear Urine Color Dark Yellow Stool Size Copious Stool Color Brown Stool Consistency Formed # Voids 1 # Bowel Movements 1 Exam: General: Alert, Awake, No acute Distress Eyes/N/T: EOMI, Head/Neck: neck supple, bruising of the face including right brow suture CV: RRR, No murmurs Pulm: Clear b/l, no wheezing/rhonchi/rales Abd: soft, nontender, +BS x4 Ext: no clubbing/cyanosis. Left left arm in sling, left leg wound VAC in place Neuro: Alert, no focal deficits, moves all extremities, Skin: warm/dry Medical - PN: Obj Da - Labs CBC & Chem 7: 01/08/19 04:12 01/08/19 04:12 Labs: Abnormal Lab Results 01/08/19 01/08/19 01/07/19 04:12 04:12 04:02 RBC 2.98 L Hgb 8.8 L Hct 27.6 L MPV 7.3 L Seg Neutrophils % Lymphocytes % RBC Morphology Polychromasia BUN 21 H Glucose 109 H GGT 62 H 77 H Lactate Dehydrogenase 269 H Triglycerides 188 H 158 H 01/07/19 01/06/19 04:02 04:00 RBC 2.96 L Hgb 8.8 L Hct 27.3 L MPV Seg Neutrophils % 84 H 86 H Lymphocytes % 12 L 10 L RBC Morphology Abnorm A Polychromasia 1+ A BUN Glucose GGT Lactate Dehydrogenase Triglycerides Meds: Medications Acetaminophen (Tylenol) 650 mg PO Q4-6HP PRN PRN Reason: PAIN/FEVER > 101 Last Admin: 01/07/19 02:25 Dose: 650 mg Documented by: Hydrocodone Bitart/Acetaminophen ([place] 10/325mg) 1 tab PO QIDP PRN PRN Reason: Pain Last Admin: 01/09/19 05:29 Dose: 1 tab Documented by: Atorvastatin Calcium (Lipitor) 10 mg PO HS [facility] Last Admin: 01/08/19 20:44 Dose: 10 mg Documented by: Bupropion HCl (Wellbutrin Xl) 450 mg PO DAILY [facility] Last Admin: 01/08/19 09:25 Dose: 450 mg Documented by: Cyanocobalamin (Vitamin B-12) 2,500 mcg PO DAILY [facility] Last Admin: 01/08/19 09:22 Dose: 2,500 mcg Documented by: Dextrose (Dextrose 50%) 0 ml IV UD PRN PRN Reason: Hypoglycemia Diagnostic Test (Pha) (Accu-Chek) 1 each FS ACHS [facility] Last Admin: 01/08/19 20:46 Dose: 1 each Documented by: Docusate Sodium (Colace) 100 mg PO BID [facility] Last Admin: 01/08/19 20:45 Dose: 100 mg Documented by: Famotidine (Pepcid) 20 mg PO BIDAC [facility] Last Admin: 01/08/19 17:10 Dose: 20 mg Documented by: Furosemide (Lasix) 20 mg PO BID [facility] Last Admin: 01/08/19 20:45 Dose: 20 mg Documented by: Gabapentin (Neurontin) 900 mg PO QID [facility] Last Admin: 01/08/19 20:45 Dose: 900 mg Documented by: Glucose (Insta-Glucose) 15 gm PO PRN PRN PRN Reason: Hypoglycemia Hydromorphone HCl (Dilaudid) 0.5 mg IV Q4HP PRN PRN Reason: PAIN LEVEL > 6 Last Admin: 01/08/19 04:06 Dose: 0.5 mg Documented by: Ceftriaxone Sodium 2 gm/ (Dextrose) 50 mls @ 100 mls/hr IV DAILY [facility]; Protocol Last Infusion: 01/08/19 11:30 Dose: Infused Documented by: Magnesium Sulfate (Magnesium Sulfate) 2 gm in 50 mls @ 50 mls/hr IV UD PRN PRN Reason: MG = or < 1.7 Acetaminophen (Ofirmev) 1,000 mg in 100 mls @ 200 mls/hr IV Q6HP PRN PRN Reason: PAIN/FEVER > 101 Last Infusion: 01/08/19 13:35 Dose: Infused Documented by: Insulin Glargine (Lantus) 20 unit SQ BID [facility] Last Admin: 01/08/19 20:45 Dose: 20 units Documented by: Insulin Human Lispro (Humalog) 0 unit SQ ACHS [facility]; Protocol Last Admin: 01/08/19 20:46 Dose: Not Given Documented by: Loratadine (Claritin) 10 mg PO DAILY [facility] Last Admin: 01/08/19 09:26 Dose: 10 mg Documented by: Lorazepam (Ativan) 1 mg PO Q4HP PRN PRN Reason: Anxiety Magnesium Hydroxide (Milk Of Magnesia) 30 ml PO HSP PRN PRN Reason: Constipation Last Admin: 01/07/19 08:44 Dose: 30 ml Documented by: [facility] ([facility] Last Admin: 01/08/19 17:09 Dose: 1,000 mg Documented by: Metoprolol Succinate (Toprol Xl) 100 mg PO DAILY [facility] Last Admin: 01/08/19 09:28 Dose: 100 mg Documented by: Morphine Sulfate (Ms Contin) 15 mg PO TID [facility] Last Admin: 01/08/19 20:44 Dose: 15 mg Documented by: Nitrofurantoin Macrocrystals (Macrobid) 100 mg PO BID [facility] Last Admin: 01/08/19 20:43 Dose: 100 mg Documented by: Ondansetron HCl (Zofran) 4 mg IV Q4-6HP PRN PRN Reason: Nausea And Vomiting Dapagliflozin Propanediol [Farxiga ] 10 Mg Tab 1 dose PO DAILY [facility] Last Admin: 01/08/19 09:30 Dose: Not Given Documented by: Polyethylene Glycol (Miralax) 17 gm PO BIDP PRN PRN Reason: Constipation Last Admin: 01/09/19 02:59 Dose: 17 gm Documented by: Potassium Chloride (Klor-Con) 40 meq PO DAILYP PRN PRN Reason: K+ < 3.5 Rivaroxaban (Xarelto) 20 mg PO QPMCC [facility] Last Admin: 01/08/19 17:10 Dose: 20 mg Documented by: Senna/Docusate Sodium (Senna Plus Tablet) 1 tab PO HS [facility] Last Admin: 01/08/19 20:43 Dose: 1 tab Documented by: Sitagliptin Phosphate (Januvia) 100 mg PO DAILY [facility] Last Admin: 01/08/19 09:28 Dose: 100 mg Documented by: Sodium Biphosphate/Sodium Phosphate (Fleets Adult) 1 dose [place] DAILYP PRN PRN Reason: Constipation Sodium Chloride (Saline Flush) 10 ml IV Q8 [facility] Last Admin: 01/09/19 05:30 Dose: 10 ml Documented by: Spironolactone (Aldactone) 50 mg PO BID [facility] Last Admin: 01/08/19 20:43 Dose: 50 mg Documented by: Venlafaxine HCl (Effexor Xr) 150 mg PO DAILY [facility] Last Admin: 01/08/19 09:24 Dose: 150 mg Documented by: Medical - PN: A/P - Time Spent With Patient Total time spent is greater than 50% in coordination of care (as documented) at patient's floor/unit and/or counseling patient: - Narrative A/P Narrative: A: *Complicated (E.coli) UTI: failed outpatient treatment -resistant to quinolones/nitrofurantoin/bactrim/ampicillin *Recurrent falls, mechanical from motorized scooter -no reported syncope -Echocardiogram unremarkable, no abnormal tele rhythms. *LLE infected hematoma/cellulitis: s/p I&D (01/06), wound vac in place -MRI left lower extremity shows hematoma. *Recent left supracondylar humerus fracture: s/p ORIF (01/06) by Dr. Francis *Significant self-care deficits/generalized deconditioning and weakness. *DM II: *Anemia, chronic: stable *CAD: beta santiago statin/spironolactone *PAF: on BB/Rivaroxaban *Neuropathy: gabapentin/cyclobenzaprine *Anxiety: on venlafaxine *Morbid obesity Plan: -rocephin, will change to oral cephalosporin for d/c -wound care following -restarted anticoagulation -continue basal prandial insulin/Dapagliflozin -cont BB/Statin/Aldactone -f/u with Ortho outpt -Aggressive PT OT/nutritional support -SNF placement likely thursday -ppx: [facility] - PN: Qual - VTE Deep Vein Thrombosis/Pulmonary Embolism Present on Admission: No
[2019-01-09] MEDS: INSULIN LISPRO 1 UNIT/0.01 ML UNIT SQ SCH ×4 (07:19→20:32)
[2019-01-09] MEDS: SPIRONOLACTONE 25 MG TABLET PO SCH ×2 (08:25→20:19)
[2019-01-09] MEDS: FUROSEMIDE 20 MG TABLET PO SCH ×2 (08:26→20:21)
[2019-01-09] MEDS: sitaGLIPtin 100 MG TABLET PO SCH (08:26)
[2019-01-09] MEDS: METOPROLOL SUCCINATE 50 MG TAB.XL.24H PO SCH (08:26)
[2019-01-09] MEDS: FAMOTIDINE 20 MG TABLET PO SCH ×2 (08:26→16:36)
[2019-01-09] MEDS: GABAPENTIN 300 MG CAPSULE PO SCH ×4 (08:26→20:20)
[2019-01-09] MEDS: VENLAFAXINE 150 MG CAP.XL.24H PO SCH (08:26)
[2019-01-09] MEDS: metFORMIN 500 MG TABLET PO SCH ×2 (08:26→16:36)
[2019-01-09] MEDS: DOCUSATE SODIUM 100 MG CAPSULE PO SCH ×2 (08:26→20:21)
[2019-01-09] MEDS: Dapagliflozin Propanediol [Farxiga] 10 mg Tab PO SCH (08:27)
[2019-01-09] MEDS: CYANOCOBALAMIN (VITAMIN B-12) 500 MCG TABLET PO SCH (08:27)
[2019-01-09] MEDS: buPROPion 150 MG TAB.XL.24H PO SCH (08:27)
[2019-01-09] MEDS: LORATADINE 10 MG TABLET PO SCH (08:27)
[2019-01-09] MEDS: morphine 15 MG TAB.SR.12H PO SCH ×3 (08:28→20:21)
[2019-01-09] MEDS: NITROFURANTOIN SR 100 MG CAPSULE PO SCH ×2 (08:28→20:27)
[2019-01-09] MEDS: INSULIN GLARGINE, HUMAN 1 UNIT/0.01 ML SQ SCH ×2 (08:28→20:21)
[2019-01-09] MEDS: cefTRIAXone 2 GM in DEXTROSE 5% IN WATER 50 ML IV SCH (09:31)
--- NOTE | 2019-01-09 14:07 | General Surgery Progress Note ---
Subjective Narrative: Note initiated : 01/09/19 at 2:05 pm Service Date, if different from initiated Date: [] Patient: Jessica Gaytan 53 y/o F admitted on 01/04/19 for Decreased LOC, Spastic movement in arms. Chief Complaint: [] Patient had an uneventful night. No acute interval changes. Objective Temp Pulse Resp BP Pulse Ox 97.5 F 96 H 19 118/68 98 01/09/19 12:00 01/09/19 12:00 01/09/19 12:00 01/09/19 12:00 01/09/19 12:00 AVSS. No changes in examination. VAC working well. No drainage. - Additional Data Intake & Output - Last 24 hours: Intake & Output 01/07/19 01/08/19 01/09/19 01/10/19 05:59 05:59 05:59 05:59 Intake Total 2140 960 1790 600 Output Total 2400 1700 3200 1100 Balance -260 -740 -1410 -500 Weight 260 lb 258 lb 8 oz 259 lb - Labs 01/08/19 04:12 01/08/19 04:12 Assessment and Plan (1) Traumatic hematoma of left lower leg Status: Acute Current Visit: Yes (2) Fall Status: Acute Current Visit: No (3) Laceration of head Status: Acute Current Visit: No (4) Left elbow fracture Status: Acute Assessment and plan: Assessment: Satisfactory progress. Plan: Awaits placement. F/U at wound center after discharge Current Visit: No (5) Urinary tract bacterial infections Status: Chronic Current Visit: No - Narrative A/P Narrative: Assessment: No interval changes. Plan: Continue present treatment. Check wound tomorrow and D/C planning. - Time Spent With Patient Total time spent is greater than 50% in coordination of care (as documented) at patient's floor/unit and/or counseling patient: less than 15 minutes
[2019-01-09] MEDS: RIVAROXABAN 20 MG TABLET PO SCH (16:36)
[2019-01-09] MEDS: ATORVASTATIN 20 MG TABLET PO SCH (20:19)
[2019-01-09] MEDS: ARIPIPRAZOLE 20 MG TABLET PO SCH (20:21)
[2019-01-09] MEDS: SENNOSIDES/DOCUSATE SODIUM 1 TAB TABLET PO SCH (20:30)
[2019-01-10] MEDS: HYDROcodone/APAP 10/325MG TABLET PO PRN ×2 (01:29→10:54)
[2019-01-10] MEDS: HYDROmorphone 2 MG/ML VIAL IV PRN (02:14)
[2019-01-10 05:24] LABS: Basophils # (Auto) 0 K/mcL (0.0-0.3); Basophils % (Auto) 0.4 % (0.0-2.0); Eosinophils # (Auto) 0.2 K/mcL (0.0-0.7); Eosinophils % (Auto) 1.8 % (0.0-7.0); Granulocytes % (Auto) 71.7 % (38.0-78.0); Lymphocytes # (Auto) 1.8 K/mcL (1.5-4.8); Lymphocytes % (Auto) 21.1 % (15.5-49.0); Mean Cell Volume 92.8 fL (80.0-100.0); Mean Corpuscular HGB Conc 32.7 g/dL (31.0-36.0); Monocytes # (Auto) 0.4 K/mcL (0.1-0.9); Platelet Count 277 K/mcL (140-440); RBC 3.08 M/mcL (4.00-5.20); Red Cell Distribution Width 15.1 % (11.5-14.5)
[2019-01-10 05:55] LABS: ALT/SGPT 24 U/l (0-40); Albumin 3.6 gm/dL (3.2-5.2); Albumin/Globulin Ratio 1.1 (1.0-2.3); Alkaline Phosphatase 79 U/L (39-117); Bilirubin,Direct < 0.2 mg/dL (0.0-0.3); Blood Urea Nitrogen 23 mg/dl (6-20); Gamma Glutamyl Transpeptidase 51 U/L (5-36); Uric Acid 8.3 mg/dL (2.5-8.0)
[2019-01-10] MEDS: 0.9 % SODIUM CHLORIDE 10 ML SYRINGE IV SCH (06:43)
[2019-01-10] MEDS: INSULIN LISPRO 1 UNIT/0.01 ML UNIT SQ SCH ×2 (06:44→11:45)
[2019-01-10] MEDS: FAMOTIDINE 20 MG TABLET PO SCH (06:51)
[2019-01-10] MEDS ORDERED: FUROSEMIDE 20 MG TABLET PO SCH (08:00)
[2019-01-10] MEDS: CYANOCOBALAMIN (VITAMIN B-12) 500 MCG TABLET PO SCH (08:08)
[2019-01-10] MEDS: GABAPENTIN 300 MG CAPSULE PO SCH (08:08)
[2019-01-10] MEDS: buPROPion 150 MG TAB.XL.24H PO SCH (08:08)
[2019-01-10] MEDS: metFORMIN 500 MG TABLET PO SCH (08:09)
[2019-01-10] MEDS: SPIRONOLACTONE 25 MG TABLET PO SCH (08:09)
[2019-01-10] MEDS: LORATADINE 10 MG TABLET PO SCH (08:09)
[2019-01-10] MEDS: sitaGLIPtin 100 MG TABLET PO SCH (08:09)
[2019-01-10] MEDS: VENLAFAXINE 150 MG CAP.XL.24H PO SCH (08:09)
[2019-01-10] MEDS: METOPROLOL SUCCINATE 50 MG TAB.XL.24H PO SCH (08:09)
[2019-01-10] MEDS: cefTRIAXone 2 GM in DEXTROSE 5% IN WATER 50 ML IV SCH (08:10)
[2019-01-10] MEDS: Dapagliflozin Propanediol [Farxiga] 10 mg Tab PO SCH (08:10)
[2019-01-10] MEDS: NITROFURANTOIN SR 100 MG CAPSULE PO SCH (08:10)
[2019-01-10] MEDS: INSULIN GLARGINE, HUMAN 1 UNIT/0.01 ML SQ SCH (08:10)
[2019-01-10] MEDS: DOCUSATE SODIUM 100 MG CAPSULE PO SCH (08:10)
[2019-01-10] MEDS: morphine 15 MG TAB.SR.12H PO SCH (08:10)
--- NOTE | 2019-01-10 10:28 | Discharge Summary ---
Medical - DS: Prov Patient information: Note initiated : 01/10/19 at 10:20 am Service Date, if different from initiated Date: [] Patient: Jessica Gaytan 53 y/o F admitted on 01/04/19 for Decreased LOC, Spastic movement in arms. Chief Complaint: [] Date of admission: 01/04/19 15:28 Discharge date: 01/10/19 Primary care physician: Kassy Elder Consults: 01/04/19 Consult to Physician [CONS] Stat Comment: Consulting Provider: Ramiro Bhardwaj Reason For Exam: Physician to Consult 01/04/19 15:35 Consult to Physician [CONS] Routine Comment: Consulting Provider: Burke Carvajal Reason For Exam: Physician to Consult 01/05/19 12:03 Consult to Physician [CONS] Routine Comment: Consulting Provider: Yuri Francis Reason For Exam: Physician to Consult Discharging clinician: Susana Victoria Medical - DS: Meds - Discharge Medications Prescriptions: HYDROcodone/APAP 10/325MG [Jackson 10-325Mg] 1 tab PO QIDP PRN #20 tab PRN Reason: Pain LORazepam [Ativan] 1 mg PO Q4HP PRN #10 tab PRN Reason: Anxiety morphine [Ms Contin] 15 mg PO TID #20 tab.sr.12h Active and Home Medications: Home Medications Atorvastatin [Lipitor] 10 mg PO HS 12/30/16 [History Confirmed 01/04/19 Last Taken 01/03/19] Cyclobenzaprine [Flexeril] 10 mg PO TID 12/30/16 [History Confirmed 01/04/19 Last Taken 01/04/19] Insulin Glargine,Hum.rec.anlog [Basaglar Kwikpen U-100] 20 unit SQ BID 12/30/16 [History Confirmed 01/04/19 Last Taken 01/04/19] Insulin Lispro [Humalog] See Protocol SQ TIDAC 12/30/16 [History Confirmed Last Taken Unknown] Loratadine [Loradamed] 10 mg PO DAILY 12/30/16 [History Confirmed 01/04/19 Last Taken 01/04/19] Magnesium Hydroxide [Milk of Magnesia] 30 ml PO DAILYP PRN 12/30/16 [History C onfirmed 01/04/19 Last Taken Unknown] Metoprolol Succinate [Toprol] 100 mg PO DAILY 12/30/16 [History Confirmed 01/04/19 Last Taken 01/04/19] Ranitidine HCl [Acid Livery Car Driver] 150 mg PO BIDAC 12/30/16 [History Confirmed 01/04/19 Last Taken 01/04/19] Rivaroxaban [Xarelto] 20 mg PO DAILY 12/30/16 [History Confirmed 01/04/19 Last Taken 01/04/19] Spironolactone [Aldactone] 50 mg PO BID 12/30/16 [History Confirmed 01/04/19 Last Taken 01/04/19] Tylenol 650 mg PO Q6HP PRN 12/30/16 [History Confirmed 01/04/19 Last Taken Unknown] Venlafaxine HCl [Venlafaxine HCl ER] 75 mg PO DAILY 12/30/16 [History Confirmed 01/04/19 Last Taken 01/04/19] Venlafaxine HCl [Venlafaxine HCl ER] 150 mg PO DAILY 12/30/16 [History Confirmed 01/04/19 Last Taken 01/04/19] metFORMIN HCL [Glucophage] 1,000 mg PO BIDAC 12/30/16 [History Confirmed 01/04/19 Last Taken 01/04/19] Dapagliflozin Propanediol [Farxiga] 10 mg PO DAILY 11/02/17 [History Confirmed 01/04/19 Last Taken 01/04/19] Furosemide [Lasix] 20 mg PO BID 11/02/17 [History Confirmed 01/04/19 Last Taken 01/04/19] Aripiprazole [Abilify] 30 mg PO HS 01/04/19 [History Confirmed 01/04/19 Last Taken 01/03/19] Cholecalciferol (Vitamin D3) [D3 Dots] 2,000 unit PO DAILY 01/04/19 [History Confirmed 01/04/19 Last Taken 01/04/19] Cyanocobalamin (Vitamin B-12) [Vitamin B12] 2,500 mcg PO DAILY 01/04/19 [History Confirmed 01/04/19 Last Taken 01/04/19] Docusate Sodium [Colace] 100 mg PO BID 01/04/19 [History Confirmed 01/04/19 Last Taken 01/04/19] Gabapentin [Neurontin] 900 mg PO QID 01/04/19 [History Confirmed 01/04/19 Last Taken 01/04/19] HYDROcodone/APAP 10/325MG 1 tab PO QIDP PRN 01/04/19 [History Confirmed 01/04/19 Last Taken Unknown] LORazepam 1 mg PO Q4HP PRN 01/04/19 [History Confirmed 01/04/19 Last Taken 12/14/18] Loperamide [Imodium] 2 mg PO PRN PRN MDD 8 01/04/19 [History Confirmed 01/04/19 Last Taken Unknown] Polyethylene Glycol 3350 [Miralax] 1 packet PO BIDP PRN 01/04/19 [History Confirmed 01/04/19 Last Taken Unknown] buPROPion HCL [Forfivo Xl] 450 mg PO DAILY 01/04/19 [History Confirmed 01/04/19 Last Taken 01/04/19] morphine [Ms Contin] 15 mg PO TID 01/04/19 [History Confirmed 01/04/19 Last Taken Unknown] traZODone HCL [Trazodone HCl] 300 mg PO HS 01/04/19 [History Confirmed 01/04/19 Last Taken 01/03/19] Medical - DS: Hosp Hospital course: Ms. Gaytan is a 53 year old F with a known history of hypertension/obesity and coronary artery disease who presents to the ER with multiple complaints including weakness lethargic malaise, gradual deterioration in functional status after sustaining a fall a few days ago off her wheelchair that resulted in left supracondylar fracture humerus along with injury to the left lower extremity resulting in hematoma. Patient was placed in a cast and sling and has been at [place] unable to care for self. She has experienced a gradual decline in health and has been battling with recurrent UTIs and has been recently on antibiotics. She however denies expressing fever, diarrhea, dysuria, bloody stool. She further denies headache photophobia but has gradually gotten increasingly confused. Initial workup in the ER was consistent with recurrent UTI with pyuria/elevated lactate and left lower extremity hematoma/cellulitis. Patient was started on antibiotics and hospitalist service was consulted During the time of evaluation patient is fatigued and lethargic and was able to answer some questions. She denies lightheadedness, dizziness, seizure episode. She attributes the fall with her motorized chair toppling over the Rug 01/05-patient clinically improved. Wound care on board. MRI lower extremity pending to rule out fracture/osteomyelitis. Possible drainage in 24 hours with wound care. Case discussed with orthopedics for left supracondylar fracture evaluation. Ongoing pain management. Echocardiogram pending. No overnight fever chills nausea vomiting. 01/06- patient doing well. Will be undergoing hematoma evacuation/left arm fracture repair. Surgery and orthopedics on board. No overnight events. No concerns or staff. Adequate pain management. Currently nothing by mouth. Will review postop 01/07 Slept all right. No new complaints. Does have pain in the fractured arm relatively controlled. Had surgical repair yesterday of her arm as well as debridement of the left leg hematoma yesterday. 01/08 No issues overnight. Slept well and feeling better overall. Wound VAC in place. Wound care following. Likely placement on Thursday. 01/09 Slept well. No new complaints. Excited to be discharged tomorrow. Wound VAC in place and site looks good 01/10 Patient seen examined, sitting in the chair, no new complaints or concerns, eager to be discharged. She will complete her course of antibiotics. Follow up with PCP/Woundcare and ortho as outpatient. No changes made to her chr home medication regime. In Summary Patient presented to the hospital with complaints of weakness, h/o syncope and gradual deterioration of her health. Initial workup in the ER was consistent with recurrent UTI with pyuria/elevated lactate and left lower extremity hematoma/cellulitis. *Complicated (E.coli) UTI: failed outpatient treatment -resistant to quinolones/nitrofurantoin/bactrim/ampicillin/ -Urine culture growing Ecoli sensitive to keflex, will d/c on same for 5 more days *Recurrent falls, mechanical from motorized scooter -no reported syncope -Echocardiogram unremarkable, no abnormal tele rhythms. *LLE infected hematoma/cellulitis: s/p I&D (01/06), wound vac in place -MRI left lower extremity shows hematoma.? cellulitis, s/p abx -Wound vac in place, outpatient follow up with wound care physician *Recent left supracondylar humerus fracture - s/p ORIF (01/06) by Dr. Francis *Significant self-care deficits/generalized deconditioning and weakness. -continued rehab, at SNF, OT/PT treatments No changes made to her chronic home medication regime, patient to follow up with PCP. She is on quite a significant dose of narcotic pain medications, long acting as well as short acting, has high dose of gabapentin and benzodiazepines. I would advise PCP to consider cutting back on these medications keshav given her psych history. Discharge diagnosis: Complicated UTI, Left leg wound, Elbow fracture, falls - Time Spent with Patient Total time spent providing and/or coordinating discharge services: Greater than 30 minutes Medical - DS: Exam - Constitutional Vitals: Vital Signs Temp Pulse Pulse Resp BP Pulse Ox 01/10/19 06:49 97.1 F 18 118/68 99 01/10/19 03:51 98.0 F 89 20 106/66 01/09/19 23:49 97.3 F 89 20 133/66 01/09/19 18:48 97.5 F 80 20 120/82 01/09/19 16:00 97.7 F 85 18 113/64 98 01/09/19 12:00 97.5 F 96 H 19 118/68 98 Intake and Output 01/09/19 01/10/19 01/10/19 21:59 05:59 13:59 Intake Total 280 1050 50 Output Total 1250 1350 Balance -970 -300 50 Intake: IV 50 Rocephin 2 gm In Dextrose 5% in 50 Water 50 ml @ 100 mls/hr IV DAILY [facility] Rx#:[id number] Oral 280 1050 Output: Drainage 0 Left Lateral Vizcaino Woundvac 0 Void Amount 1250 1350 Other: Meal Dinner Percent of Meal Consumed 100% Feeding Ability Independent Stool Size Large Stool Color Brown Stool Consistency Formed # Voids 1 Weight 260 lb Additional comments: Constitutional; Afebrile, cooperative, alert, not in distress. Respiratory system: Air Entry equal on both sides, No crackles or wheezing, no rhonchi. CVS- Rate rhythm regular, S1,S2 heard, no gallop, no rub. Abdomen- Soft nontender abdomen, no organomegaly, no tenderness, no guarding or rigidity, METER ATTENDANT- AOOx3, moving all extremities, no gross focal deficit noted. Medical - DS: Data Labs on day of discharge: Labs from last 24 hours 01/10/19 01/10/19 03:47 03:47 WBC 8.6 RBC 3.08 L Hgb 9.4 L Hct 28.6 L MCV 92.8 MCH 30.4 MCHC 32.7 RDW 15.1 H Plt Count 277 MPV 7.1 L Gran % 71.7 Lymph % (Auto) 21.1 Stephenson % (Auto) 5.0 Eos % (Auto) 1.8 Baso % (Auto) 0.4 Gran # 6.2 Lymph # (Auto) 1.8 Stephenson # (Auto) 0.4 Eos # (Auto) 0.2 Baso # (Auto) 0 Sodium 141 Potassium 4.5 Chloride 101 Carbon Dioxide 28 Anion Gap 12.0 BUN 23 H Creatinine 0.7 GFR Calculation 98 Glucose 79 Uric Acid 8.3 H Calcium 9.1 Phosphorus 3.3 Magnesium 2.2 Total Bilirubin 0.3 Direct Bilirubin < 0.2 GGT 51 H AST 16 ALT 24 Alkaline Phosphatase 79 Lactate Dehydrogenase 249 Total Protein 7.0 Albumin 3.6 Globulin 3.4 Albumin/Globulin Ratio 1.1 Triglycerides 171 H Preliminary micro results at discharge 01/06/19 12:19 Anaerobic Culture - Preliminary Leg - Left Medical - DS: A/P - Patient/Caregiver Discharge Instructions Activity: as per physical therapy, increase activity as tolerated Diet: Consistent Carbohydrate Additional Instructions: Follow up with PCP in 1 week Take antibiotics till gone Wound care/ wound vac care as per Wound care instructions. Go to the ER if worsening condition, chest pain, shortness of breath or any other acute concern. Follow up with Dr Francis/ Ortho and Dr Braxton / Wound care as scheduled. - Follow up Plan Follow up with: Burke Carvajal MD [Physician] - Yuri Francis MD [Physician] - (Please call and schedule for cast change in 5 days after surgery.) Kassy Elder ARNP [Primary Care Provider] - Disposition: Xfer SNF Prognosis: Fair Rehab Potential: Fair I certify that the patient requires SNF services: Yes Overall status at discharge: patient is progressing back to baseline Medical - DS: Qual - VTE Deep Vein Thrombosis/Pulmonary Embolism Present on Admission: No
== END 2019-01-10 11:11 | DRG 982 ==
LOC: ED 10:03 → MEDSUR 15:28
PROVIDERS: ADMIT Internal Medicine; ATTEND Internal Medicine